=== PATIENT | female | born 1940 | race Caucasian/White ===

== ENCOUNTER 2019-08-22 14:04 | Observation (INO) ==
[2019-08-22] MEDS ORDERED: SALINE LOCK IV FLUID XX ONE (15:37)
[2019-08-22] MEDS ORDERED: ZOFRAN IV PRN (15:37)
[2019-08-22] MEDS ORDERED: TYLENOL PO PRN (15:37)
--- NOTE | 2019-08-22 15:52 | EKG Report ---
Test Performed on : 08/22/2019 3:44:57 PM Test Reason : chest pain Blood Pressure : / mmHG Vent. Rate : 078 BPM Atrial Rate : 078 BPM P-R Int : 142 ms QRS Dur : 128 ms QT Int : 424 ms P-R-T Axes : 081 011 064 degrees QTc Int : 483 ms Normal sinus rhythm. Right bundle branch block Cannot rule out Inferior infarct (cited on or before 21-AUG-2019) Abnormal ECG When compared with ECG of 21-AUG-2019 14:31, (Unconfirmed) Nonspecific T wave abnormality no longer evident in Anterior leads Confirmed by Galen Blum MD ([id number]) on 08/22/2019 11:10:00 PM
--- NOTE | 2019-08-22 16:07 | Diag Imaging Result Doc PS360 ---
CHEST-2 VIEWS - 08/22/2019 INDICATION: Chest Pain COMPARISON: 08/21/2019 FINDINGS: The lungs are normally expanded and clear. Heart size and mediastinal contours are normal. No pneumothorax or pleural effusion. There is some trace linear atelectasis in the lateral left costophrenic angle. No infiltrates or edema. Heart size and pulmonary vascularity is normal. No pneumothorax or pleural effusion. IMPRESSION: No acute disease. Electronically signed by Gerber Kelly 08/22/2019 4:05 PM
--- NOTE | 2019-08-22 20:47 | ECHO REPORT ---
ORDER DATE: 08/22/2019 MEASUREMENTS: Septal thickness 1.0, left ventricular internal diameter in diastole 4.9, posterior wall thickness 1.0, left ventricular internal diameter in systole 2.9, aortic root 3.0, left atrium 3.8. SUMMARY: 1. Technically difficult study due to limited acoustic window quality. 2. The aortic valve is trileaflet and opens normally on 2-dimensional images. The peak gradient across the aortic valve is 11 mmHg. Mitral, tricuspid and pulmonic valves are without evidence of structural abnormality, with very mild mitral regurgitation and trace pulmonic insufficiency. There is trace tricuspid regurgitation. The aortic root is normal in size. 3. Normal left ventricular dimensions demonstrated. Estimated left ventricular ejection fraction appears to be at least 70%. No regional wall motion abnormalities are evident. Doppler suggests grade 1 left ventricular diastolic dysfunction. The left atrium is upper normal in size. The right atrium and right ventricle are normal in size, with grossly preserved right ventricular systolic function. 4. No pericardial effusion. 5. Appearance of the inferior vena cava suggests normal central venous pressure. CONCLUSIONS: 1. Technically difficult study. 2. Very mild mitral regurgitation. 3. Estimated left ventricular ejection fraction at least 70%, without wall motion abnormality evident. 4. Grade 1 left ventricular diastolic dysfunction is suggested. cc: MD Armen Carmona MD
[2019-08-22] MEDS: PRILOSEC PO SCH (20:57)
[2019-08-22] MEDS: NORCO-10 PO PRN (20:58)
[2019-08-22] MEDS ORDERED: NEURONTIN PO SCH (21:00)
[2019-08-22] MEDS ORDERED: DESYREL PO SCH (21:00)
[2019-08-23] MEDS ORDERED: PRILOSEC PO SCH (07:00)
[2019-08-23 07:26] LABS: BASO# 0.03 X1000 (0.0-0.2); BASO% 0.6 % (0.0-0.8); EOS# 0.21 X1000 (0.0-0.7); EOS% 4.1 % (0.0-10.0); HEMATOCRIT 38.8 % (37.0-47.0); HEMOGLOBIN 12.2 g/dL (12.0-16.0); LYMPH# 1.13 X1000 (1.2-3.4); LYMPH% 22.2 % (20.5-51.1); MCH 29.6 PG (27-31); MCHC 31.4 g/dL (33-37); MCV 94.2 FL (81-99); MONO# 0.51 X1000 (0.11-0.59); MPV 9.5 FL (7.4-10.4); NEUT# 3.22 X1000 (1.4-6.5); NEUT% 63.1 % (42.2-75.2); PLT 362 X1000 (130-400); RBC 4.12 XMIL (4.2-5.4); RDW 15.1 % (11.5-14.5)
[2019-08-23 08:13] LABS: CHOLESTEROL 150 mg/dL (0-200); HDL 33 mg/dL (45-65); LDL 67 mg/dL; TRIGLYCERIDES 251 mg/dL (35-135); VLDL 50 mg/dL
[2019-08-23] MEDS ORDERED: LEXISCAN ONE (08:49)
[2019-08-23] MEDS ORDERED: CENTRUM SILVER PO SCH (09:00)
[2019-08-23] MEDS ORDERED: CALTRATE 600 PO SCH (09:00)
[2019-08-23] MEDS ORDERED: MEVACOR PO SCH (09:00)
[2019-08-23] MEDS ORDERED: LASIX PO SCH ×2 (09:00→21:00)
[2019-08-23] MEDS ORDERED: MAG-OX PO SCH (09:00)
[2019-08-23] MEDS ORDERED: ASPIRIN PO SCH (09:00)
[2019-08-23] MEDS ORDERED: MIRAPEX PO SCH (09:00)
[2019-08-23] MEDS: PRILOSEC PO SCH (11:25)
[2019-08-23] MEDS: NORCO-10 PO PRN (11:30)
[2019-08-23 12:02] VITALS: BP 159/74
--- NOTE | 2019-08-23 14:19 | Diag Imaging Result Document ---
PROCEDURE NAME: MYOCARDIAL PERF SCAN, STR/REST - 08/23/2019 INDICATION: Chest pain. PROCEDURES PERFORMED: 1. Lexiscan stress. 2. One-day stress/rest myocardial perfusion imaging. FINDINGS: LEXISCAN STRESS RESULTS: 1. Baseline EKG shows sinus rhythm with a right bundle branch block. 2. Lexiscan stress did not demonstrate any clear evidence of ischemic-related EKG changes or significant arrhythmias during the course of the study. PERFUSION IMAGING RESULTS: 1. No evidence of abnormal extracardiac uptake. 2. TID ratio is 1.11. 3. Perfusion imaging demonstrates essentially normal homogeneous uptake of radiotracer throughout the myocardial segments. I do not see any evidence of clear stress-related defects. 4. Normal ejection fraction 87%. The end-diastolic volume is 70, end-systolic volume 9. Normal wall motion is noted. cc: MD Armen Contreras MD
[2019-08-24] MEDS ORDERED: TENORMIN PO SCH (09:00)
--- NOTE | 2019-08-25 14:35 | DISCHARGE SUMMARY ---
ADMISSION DATE: 08/22/2019 DISCHARGE DATE: 08/23/2019 DISCHARGE DIAGNOSES: 1. Shortness of breath due to acute diastolic congestive heart failure. 2. Unstable angina with a history of known ischemic heart disease. 3. Mixed hyperlipidemia. 4. 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 5. Gastroesophageal reflux disease. 6. Chronic low back pain secondary to lumbar spinal stenosis with neurogenic claudication. DISCHARGE INSTRUCTIONS: 1. Return to clinic in 1 week to see me, Pepe Titus for transition of care visit. 2. Activity as tolerated. 3. 1800 calorie ADA diet. MEDICATIONS: Magnesium oxide 400 mg daily, [place] 10 one q. 6 hours p.r.n. pain, omeprazole 20 mg daily, vitamin D 1000 units twice weekly, Lasix 40 mg in the morning and may take an additional pill in the morning if she gains 2 pounds in 24 hours. Tenormin 12.5 mg daily, allopurinol 300 mg daily, biotin 1000 mcg daily, Ocuvite 1 p.o. daily, Caltrate 600 Plus D b.i.d., Colace 100 mg b.i.d., gabapentin 1200 mg at bedtime, lovastatin 40 mg at bedtime, multivitamin 1 p.o. daily, MiraLAX 17 g in 8 ounce of water daily, trazodone 150 mg at bedtime p.r.n. insomnia. DISCHARGE PHYSICAL EXAMINATION: This is a well-developed, well-nourished 79-year-old lady in no apparent distress. Pulse 85, respirations 20, BP 159/74. CV: Regular rate and rhythm. Lungs: Clear. Abdomen: Soft, nontender, with active bowel sounds. Mrs. Mariposa Mendes has a history of known ischemic heart disease. She was admitted to [facility] with unstable angina and dyspnea. We treated her with aspirin, topical nitrates, and she ruled out for myocardial ischemia by serial enzymes. We performed a Persantine Myoview GXT with rest stress protocol. No perfusion abnormalities were noted. There was no evidence of any reversible ischemia. She has had a previous angioplasty and stenting of multiple arteries. She had been with complaint of shortness of breath. She reported that she wakes up at night with shortness of breath. She had dyspnea with exertion. She had trace ankle edema. She had been taking Lasix 80 mg daily. Her chest x-ray demonstrated clear lung dubois. A 2D echocardiogram with color Doppler and spectral flow Doppler studies were obtained. She had mild mitral regurgitation. Normal left ventricular function with an EF of 70% without wall motion abnormalities and grade 1 ventricular diastolic dysfunction. We placed her on a salt and fluid restricted diet. Because of the diminished cardiac compliance, we began low-dose atenolol 12.5 mg daily. Because we added atenolol, I reduced the dosage of Lasix from 80 mg daily to 40 mg daily. I have asked her to weigh daily. She will take Lasix 40 mg in the morning and may take a second Lasix if she gains 2 pounds in 24 hours. We will titrate upward on the atenolol as tolerated to improve cardiac compliance. Having reached maximum hospital benefit, the patient was discharged in stable condition. cc: Armen Cantu MD
[2019-08-25] MEDS ORDERED: VITAMIN D PO SCH (16:06)
== END 2019-08-23 14:31 | disposition home or self-care (01) ==
LOC: INTOOBSV 14:04 → DIRADM 14:04 → 2N 14:39
PROVIDERS: ADMIT Internal Medicine; ATTEND Internal Medicine

== ENCOUNTER 2019-10-11 23:10 | Inpatient (IN) ==
[2019-10-11] MEDS ORDERED: NS 1,000 ML IV ONE (23:30)
[2019-10-12 00:12] LABS: INR 0.98
[2019-10-12 00:13] LABS: PTT 27.1 Seconds (22.3-41.8)
[2019-10-12 00:15] LABS: ALB/GLOB RATIO 2.4; ALBUMIN 4.3 g/dL (3.5-5.0); CALCIUM 9.6 mg/dL (8.8-10.2); CREATININE 1.3 mg/dL (0.5-0.9); POTASSIUM 4.1 mmol/L (3.5-5.1); TOTAL BILIRUBIN 0.3 mg/dL (0.20-1.00); TOTAL PROTEIN 6.1 g/dL (6.3-8.3)
[2019-10-12 00:22] LABS: BASO# 0.04 X1000 (0.0-0.2); BASO% 0.4 % (0.0-0.8); EOS# 0.04 X1000 (0.0-0.7); EOS% 0.4 % (0.0-10.0); HEMATOCRIT 38.6 % (37.0-47.0); HEMOGLOBIN 11.8 g/dL (12.0-16.0); IMM GRAN# 0.04 X1000 (0.0-0.04); IMM GRAN% 0.4 % (0.0-0.5); LYMPH# 0.62 X1000 (1.2-3.4); LYMPH% 5.5 % (20.5-51.1); MCH 29.8 PG (27-31); MCHC 30.6 g/dL (33-37); MCV 97.5 FL (81-99); MONO# 0.37 X1000 (0.11-0.59); MONO% 3.3 % (1.7-9.3); MPV 10.6 FL (7.4-10.4); NEUT# 10.25 X1000 (1.4-6.5); PLT 315 X1000 (130-400); RBC 3.96 XMIL (4.2-5.4); RDW 15.7 % (11.5-14.5); WBC 11.36 X1000 (4.8-10.8)
[2019-10-12 01:09] LABS: URINE SOURCE CATH
[2019-10-12 01:15] LABS: BILIRUBIN URINE NEGATIVE (NEGATIVE); BLOOD URINE NEGATIVE (NEGATIVE); COLOR YELLOW; GLUCOSE URINE NEGATIVE (NEGATIVE); KETONE URINE TRACE mg/dL (NEGATIVE); LEUKOCYTES URINE TRACE (NEGATIVE); NITRITE URINE NEGATIVE (NEGATIVE); PH URINE 5.5; PROTEIN URINE 50 mg/dL (NEGATIVE); SP GRAVITY URINE 1.026; TURBIDITY URINE CLEAR (CLEAR); UROBILINOGEN URINE NORMAL (NORMAL)
[2019-10-12 01:29] LABS: UR EPITHELIAL CELLS <10 /HPF (<10); URINE BACTERIA NEGATIVE /HPF; URINE RBC <10 /HPF (<10); URINE WBC <10 /HPF (<10)
[2019-10-12 01:30] LABS: URINE CASTS GRANULAR PRESENT; URINE CRYSTALS NONE SEEN; URINE SMALL ROUND CELLS NONE SEEN; URINE YEAST NONE SEEN
--- NOTE | 2019-10-12 01:37 | PROVIDER DOCUMENTATION ---
This chart was entered by Nely Jackson Scribe, acting as scribe for Marcus Cabrales MD. HPI-General Adult - General Chief Complaint: Syncope Stated Complaint: poss. cva Time Seen by Provider: 10/11/19 23:23 Source: patient, EMS Allergies/Adverse Reactions: Patient Allergies Allergy/AdvReac Type Severity Reaction Status Date / Time baclofen Allergy HEADACHE Verified 10/12/19 01:10 methocarbamol Allergy NAUSEA/VOMI Verified 10/12/19 01:10 TING Home Medications: Home Medication List Medication Instructions Recorded Confirmed Last Taken Type Allopurinol [Zyloprim] 300 mg PO DAILY 08/21/19 08/22/19 Unknown History Aspirin 81 mg PO DAILY 08/21/19 08/22/19 Unknown History Biotin 1,000 mcg PO DAILY 08/21/19 08/22/19 Unknown History C,E,Zinc,Copper 11/Rlarl6v/Lut 1 cap PO DAILY 08/21/19 08/22/19 Unknown History [Ocuvite Adult 50 Plus Softgel] Calcium Carbonate [Calcium] 600 mg PO DAILY 08/21/19 08/21/19 Unknown History Cyanocobalamin S.l. [Vitamin B-12] 25,000 mcg PO DAILY 08/21/19 08/22/19 Unknown History Docusate Sodium [Colace] 1 - 4 tab PO DAILY PRN 08/21/19 08/22/19 Unknown History Gabapentin 1,200 mg PO QHS 08/21/19 08/22/19 Unknown History Lovastatin 40 mg PO DAILY 08/21/19 08/22/19 Unknown History Metformin [Glucophage] 500 mg PO BID 08/21/19 08/22/19 Unknown History Multivitamins/Minerals [Centrum 1 tab PO DAILY 08/21/19 08/22/19 Unknown History Silver] Polyethylene Glycol 3350 [Miralax] 1 dose PO DAILY 08/21/19 08/22/19 Unknown History Potassium Chloride 10 meq PO DAILY 08/21/19 08/22/19 Unknown History Pramipexole [Mirapex] 0.5 mg PO DAILY 08/21/19 08/22/19 Unknown History Trazodone HCl 150 mg PO QHS 08/21/19 08/22/19 Unknown History Vitamin B Complex [B Complex] 1 tab PO DAILY 08/21/19 08/22/19 Unknown History Buspirone HCl 1 tab PO TID 08/22/19 08/22/19 Unknown History Hydrocodone/APAP 10 mg/325 mg 1 tab PO Q6H PRN 08/22/19 08/22/19 Unknown History [[employer]-10] Atenolol [Tenormin] 12.5 mg PO DAILY #30 tab 08/23/19 Unknown Rx Cholecalciferol (Vit D3) [Vitamin 1,000 unit PO MoFr cap 08/23/19 Unknown Rx D] Furosemide [Lasix] 40 mg PO BID #60 tab 08/23/19 Unknown Rx Hydrocodone/APAP 10 mg/325 mg 1 ea PO Q6H PRN PRN tab 08/23/19 Unknown Rx [[employer]-10] Magnesium Oxide [Mag-Ox] 400 mg PO DAILY tab 08/23/19 Unknown Rx Omeprazole [Prilosec] 20 mg PO BID cap 08/23/19 Unknown Rx - History of Present Illness -Gen Adult Nature of Presenting Problems: pt is a 79 yr old female presenting via EMS from home. per medic pt had fall tonight, refused services and approx 10min later family called back for "stroke symptoms" family reported pts left hand weak and drawn. EMS reports pt denied any weakness, dizziness or confusion, pt complained of "not feeling well" family reported pt seen by PCP today for same. during transportation analyst reports pt talking, began breathing hard/fast and went unresponsive, Vfib seen by medic on monitor , medic began compressions and reports after approx 20-25 compressions pt was NSR and became responsive. pt vague, states she just does not feel well. Onset/Duration: reports: unsure Timing: reports: still present Context/Activities at Onset: reports: rest Modifying Factors: improves with: nothing Recently seen or treated by another doctor?: Yes (seen by PCP today) Review of Systems - Adult - REVIEW OF SYSTEMS - ADULT ROS:: limited per condition Constitutional: reports: no symptoms reported Past History - Adult - PAST MEDICAL HISTORY-ADULT Review of Records: reports: Nursing Assessment Review, Medications Reviewed, Social history reviewed & non-contributory. Major Childhood Illnesses: reports: denies history Cardiovascular: reports: cardiac disease, CAD, CHF, hyperlipidemia, [place] Respiratory: reports: denies history Gastrointestinal: reports: denies history Obstetrical/Gynecological: reports: denies history Genitourinary: reports: denies history Musculoskeletal: reports: chronic pain (back, has had back surgeries) Neurological: reports: denies history Psychiatric: reports: denies history Endocrine/Immune: reports: Diabetes Other Conditions: reports: denies history - PRIOR SURGERIES/PROCEDURES Surgical/Procedure History: reports: other (stent placement, back surgeries) - IMMUNIZATION STATUS Childhood Immunizations: See Nurse Assessment Flu Vaccine: See Nurse Assessment - FAMILY HISTORY Family History: reviewed, not pertinent - SOCIAL HISTORY Smoking: cigarettes Provider spent 3-5 mins advising pt. on dangers of tobacco.: Discussed manners to quit use, and f/u contacts for add'l counseling. Substance Use: denies Living Situation: family Physical Exam-General - CONSTITUTIONAL General Appearance: alert, obese - EYES Eyes: PERRL/EOMI - HEAD, EARS, NOSE, MOUTH & THROAT HENMT: normocephalic/atraumatic, moist mucous membranes - NECK Neck: non-tender, full range of motion, supple, normal inspection - RESPIRATORY Respiratory: lungs clear, normal breath sounds, increased rate - CARDIOVASCULAR Cardiovascular: normal peripheral pulses, regular rate, rhythm - GASTROINTESTINAL (ABDOMEN) Abdominal Exam: normal bowel sounds, non tender, soft - LYMPHATIC Lymphatic: no adenopathy - MUSCULOSKELETAL Extremity: normal range of motion, non-tender, normal inspection - SKIN Integumentary: normal color, normal turgor, warm/dry - NEUROLOGIC Neurologic: grossly normal, no motor/sensory deficits Progress - PLAN OF CARE/RESULTS Progress/Plan/Lab Results: Orders Category Date Time Status Cardiac Monitoring DIRECTED Care 10/11/19 23:28 Active IV Insertion ORDERED Care 10/11/19 23:28 Active Notify MD of + Sepsis Screen NOW Care 10/11/19 23:28 Active Notify Physician As Ordered Care 10/11/19 23:28 Active CHEST-1 VIEW [RAD] Stat Exams 10/11/19 23:[address] HEAD W/O CONTRAST [CT] Stat Exams 10/11/19 23:11 Taken BLOOD CULTURE [BLDCUL] Stat Lab 10/11/19 23:28 Uncollected CBC WITH DIFF [HEME] Stat Lab 10/11/19 23:28 Uncollected CK PROFILE [SP CHEM] Stat Lab 10/11/19 23:28 Uncollected COMPREHENSIVE METABOLIC PANEL [CHEM] Stat Lab 10/11/19 23:28 Uncollected LACTATE, PLASMA [CHEM] Q3H Lab 10/11/19 23:30 Uncollected LACTATE, PLASMA [CHEM] Q3H Lab 10/12/19 02:30 Uncollected LACTATE, PLASMA [CHEM] Q3H Lab 10/12/19 05:30 Uncollected PROTIME WITH INR [COAG] Stat Lab 10/11/19 23:28 Uncollected PTT [COAG] Stat Lab 10/11/19 23:28 Uncollected TROPONIN T Stat Lab 10/11/19 23:28 Uncollected URINALYSIS W/POSS RFLX CULT [URINALYSIS] Stat Lab 10/11/19 23:28 Uncollected 0.9% Sodium Chloride Inj [Ns] 1,000 ml Med 10/11/19 23:30 Active IV 999 mls/hr Oxygen Device Stat Oth 10/11/19 23:28 Active Result Diagrams: 10/11/19 23:36 10/11/19 23:36 - EKG 1 Time of EKG reading by physician:: 23:28 EKG Read and Signed by:: Marcus Cabrales EKG Interpretation (*Must complete 3 of following elements*): Abnormal (LAE) Rate: 62 Rhythm: nsr with sinus arrhythmia QRS: NSIVCD - CT/MRI 1 CT Study: Head Impression: Normal, Discussed w/Radiology (called stroke protocol-negative exam) , See EMR Report Departure - Departure Date of Disposition Decision: 10/12/19 Time of Disposition Decision: 01:36 DIAGNOSIS: Syncope Qualifiers: Syncope type: unspecified Qualified Code(s): R55 - Syncope and collapse Disposition: ADMITTED INPATIENT 09 Certified Medical Emergency: Emergent Condition: Stable Referrals and Follow-Ups: Yana Cantu MD [Primary Care Provider] - - Critical Care Note This patient required my direct & personal management of CC.: No Attestation - Physician/ CLYDE Attestation Patient care was provided by Advanced Practice Provider:: No The physician spent face to face time with patient:: Yes Advanced Practice Provider documentation review:: Supervising physician onsite and consulted in the evaluation and care of this patient. The physician did have a face to face encounter with the patient. This chart was documented by the indicated scribe, (Nely Jackson Scribe) and accurately reflects the services I performed and decisions made by me, Marcus Cabrales MD, as attested by the provider's signature.
[2019-10-12 04:20] LABS: ALLEN TEST YES; BE 1.7 mmoll (-3.0-3.0); BLOOD TYPE ARTERIAL; HCO3-(ACT) 26.3 mmoll (20.0-26.0); METHB 0.3 % (0.0-1.5); MODALITY CANNULA; O2(CT) 15.1 mL/dL (15.0-23.0); PCO2(98.6) 42 mmHg (35-45); PO2(98.6) 123 mmHg (60-100); SAMPLE BLOOD; SAO2 98.3 % (95.0-100.0); THB 10.9 g/dL (11.5-17.4); pH(98.6) 7.41 (7.35-7.45)
[2019-10-12 05:19] LABS: CALCIUM 9.1 mg/dL (8.8-10.2); POTASSIUM 4.4 mmol/L (3.5-5.1)
--- NOTE | 2019-10-12 05:36 | Diag Imaging Result Doc PS360 ---
CT HEAD W/O CONTRAST - 10/11/2019 INDICATION: poss cva COMPARISON: None FINDINGS: There is mild cerebral atrophy. There is mild periventricular white matter chronic microvascular disease. No intracranial mass or hemorrhage. The skull is intact. The sinuses are clear. IMPRESSION: No acute process. This exam was performed using automated exposure control, adjustment of mA or kV according to patient size, and/or use of iterative reconstruction technique Electronically signed by Gerber Kelly 10/12/2019 5:34 AM
[2019-10-12] MEDS ORDERED: ZOFRAN IV PRN (05:44)
[2019-10-12] MEDS ORDERED: DUONEB (A & A) INH PRN (05:44)
[2019-10-12] MEDS ORDERED: TYLENOL PO PRN (05:44)
[2019-10-12] MEDS ORDERED: PROTONIX IV SCH (05:45)
[2019-10-12] MEDS ORDERED: SODIUM CHLORIDE 0.9% INJ SCH (05:45)
[2019-10-12] MEDS: HUMULIN R SUBQ SCH ×4 (07:00→20:30)
--- NOTE | 2019-10-12 07:19 | Diag Imaging Result Doc PS360 ---
EXAM: CHEST-1 VIEW 10/11/2019 HISTORY: weakness TECHNIQUE: AP portable supine at 2341 COMMENT: There is platelike opacity in the lingula and left base. The former was not present on 08/22/2019. The inspiration is slightly less optimal than on the previous study. IMPRESSION: Lingular atelectasis. Electronically signed by Nader Martinez 10/12/2019 7:17 AM
--- NOTE | 2019-10-12 07:52 | EKG Report ---
Test Performed on : 10/11/2019 11:28:54 PM Test Reason : ED. NO EKG ORDER FOR MUSE Blood Pressure : / mmHG Vent. Rate : 062 BPM Atrial Rate : 062 BPM P-R Int : 146 ms QRS Dur : 124 ms QT Int : 452 ms P-R-T Axes : 069 017 055 degrees QTc Int : 458 ms Normal sinus rhythm. with sinus arrhythmia. Possible Left atrial enlargement Nonspecific intraventricular conduction delay Borderline ECG When compared with ECG of 22-AUG-2019 15:44, Nonspecific intraventricular conduction delay has replaced Right bundle branch block Unconfirmed Result
[2019-10-12] MEDS ORDERED: VANCOMYCIN 1 GM/NS 1 GM/250 ML IVPB IV ONE (08:35)
[2019-10-12] MEDS ORDERED: LEVAQUIN 500 MG/D5W 500 MG/100 ML IVPB IV SCH (08:45)
[2019-10-12] MEDS ORDERED: ZYLOPRIM PO SCH (09:00)
[2019-10-12] MEDS ORDERED: LASIX PO SCH (09:00)
[2019-10-12] MEDS: LR 1,000 ML IV SCH (10:30)
[2019-10-12] MEDS: TENORMIN PO SCH (11:14)
[2019-10-12] MEDS: ASPIRIN PO SCH (11:16)
[2019-10-12] MEDS: ZYLOPRIM PO SCH (11:16)
[2019-10-12] MEDS: CALTRATE 600 PO SCH (11:17)
[2019-10-12] MEDS: BRILINTA PO SCH ×2 (11:18→21:13)
[2019-10-12] MEDS: MEVACOR PO SCH (11:18)
[2019-10-12] MEDS: MAG-OX PO SCH (11:18)
[2019-10-12] MEDS: PRILOSEC PO SCH ×2 (11:19→20:30)
--- NOTE | 2019-10-12 11:38 | EKG Report ---
Test Performed on : 10/12/2019 11:26:06 AM Test Reason : dypsnea Blood Pressure : / mmHG Vent. Rate : 072 BPM Atrial Rate : 072 BPM P-R Int : 170 ms QRS Dur : 110 ms QT Int : 424 ms P-R-T Axes : 076 012 049 degrees QTc Int : 464 ms Normal sinus rhythm. Possible Left atrial enlargement Low voltage QRS Incomplete right bundle branch block Nonspecific ST abnormality Abnormal ECG When compared with ECG of 11-OCT-2019 23:28, (Unconfirmed) No significant change was found Confirmed by Mike PERES, Lionel ([id number]) on 10/13/2019 11:38:06 AM
--- NOTE | 2019-10-12 11:39 | PROGRESS NOTE ---
DATE: 10/12/2019 SUBJECTIVE: Ms. Mendes was admitted to [facility] with a syncopal episode. She reported that she felt dizzy, lightheaded and suddenly passed out. One of these episodes occurred in the ambulance, and she was noted to be in ventricular fibrillation. She spontaneously converted back to normal sinus rhythm. She had another syncopal episode associated with ventricular fibrillation. She denied any chest pain or other anginal equivalents. She had a [employer] GXT on 08/23/2019. It demonstrated essentially normal homogeneous uptake of radiotracer. There was no evidence of stress-related defects. Her ejection fraction was 87. She had an echocardiogram at that time which demonstrated normal LV function, mild mitral regurgitation and an EF of 70% without wall motion abnormalities. She had grade [address] scan of the brain was unremarkable. She has remained in normal sinus rhythm. She denies any chest pain, palpitations, or anginal equivalents. Her initial cardiac enzymes are negative. She was seen in a walk-in clinic yesterday for evaluation of low-grade fever, chills, cough productive of yellowish sputum, and pleuritic chest pain worse with deep inspiration. She was told that she had a pneumonia. Her chest x-ray obtained at [facility] demonstrated lingular atelectasis in the lingula and left base. This was not seen previously on a chest x-ray of 08/22/2019. She does have a leukocytosis of 11,000 with a left shift. Her respiratory rate has ranged from 24 to 32 during the night. She reports that she is mildly short of breath. OBJECTIVE: Vital Signs: O2 saturations are 94% to 95% on 5 L of O2. She is afebrile. Pulse 66, respirations 28, BP 106/50. CV: Regular rate and rhythm. Lungs: Diminished breath sounds in the left base. Abdomen: Soft, nontender, with active bowel sounds. Extremities: Without edema. LABS: Various laboratory studies were obtained. A CBC demonstrated a white count of 11.36, hemoglobin 11.8 ,hematocrit 38.6 and a platelet count of 315,000. She does have a left shift. Arterial blood gases demonstrated a PO2 of 123, pCO2 42, pH 7.41 and an O2 saturation 98%. Electrolytes demonstrated the following: Sodium 138, potassium 4.1, BUN 31, creatinine 1.3 glucose 173. Initial CPK and troponins are negative. ASSESSMENT AND PLAN: 1. Syncopal episode. I suspect that her syncopal episode was due to the underlying arrhythmia. She had 2 episodes of ventricular fibrillation. She does have underlying heart disease. Her previous stress test in August of this year demonstrated no reversible ischemia. Her echocardiogram showed mild mitral regurgitation. We will continue her on telemetry and will rule her out for myocardial ischemia. Certainly she may need an antiarrhythmic. We will consult Cardiology. 2. Type 2 noninsulin-dependent diabetes mellitus complicated by polyneuropathy. Given her creatinine of 1.3, I will hold the metformin. We will place her on pattern sugars and a Humulin R sliding scale. 3. Community-acquired pneumonia. She does have a left shift. She was tachypneic. Her initial plasma lactate is 2.9; her repeat lactate is 2.5. I believe that she meets the initial criteria for the sepsis protocol. I will begin Levaquin 500 mg intravenous daily pending blood and sputum cultures. We will also give her a one-time dose of vancomycin. cc: Armen Cantu MD
--- NOTE | 2019-10-12 11:57 | HISTORY AND PHYSICAL ---
PRIMARY CARE PROVIDER: Dr. Doug Cantu. TRAFFIC RATE COMPUTER: A physician at [facility] in [place]. DATE AND TIME: 10/12/2019 at 0445. CHIEF COMPLAINT: Syncopal episodes. HISTORY OF PRESENT ILLNESS: Ms. Mendes is a 79-year-old female with a past medical history most notable for coronary artery disease with cardiac stent placement x4, hypertension, hyperlipidemia, recent history of acute diastolic heart failure and diabetes mellitus. The patient's states that yesterday, being October 11, that his did have a total of 3 falls at home, the first one he states that he was not present or was not home, that she was by herself at the time. The second one he states that she was in the kitchen sitting at the chair and fell out onto the floor. The last one she was sitting on the toilet and fell out onto the floor. The patient denies any previous episodes like this in the past. Right before the episode happens, the patient states that she begins to get dizzy and feels bad and she knows what is coming, she can feel it coming on. She also has been reporting some exertional dyspnea over the past few days. She states that at rest she does not have any shortness of breath though when she gets up and exerts herself, she is having shortness of breath. She also reports that recently she has had a cold has and has had a cough. She did go to an Urgent Care a few days ago and from what I understand, did receive a Rocephin injection and possibly a steroid injection. Though outside of her syncopal episodes and the reported exertional dyspnea, she denies any other dizziness, headache, or visual disturbances. She denies any cough. She denies any chest pain. She denies any abdominal pain, nausea, vomiting, or diarrhea. She denies any hematochezia or melena. She denies any dysuria or urinary frequency. She also denies any new pain, numbness, tingling or swelling in her extremities. The last syncopal episode she had for which she was sitting on the toilet and fell out onto the floor, this is when they, from what I understand, called the ambulance. At some point during this time, this patient's left hand was weak and drawn. Though upon questioning the patient in the ER, she did not report this. Though she is overall weak, her hand grasp and muscle strength bilaterally are good, and also according to EMS, upon transport to the hospital, she reportedly, per the medic, had ventricular fibrillation on the monitor. He did begin compressions and reports that after approximately 20 to 25 compressions, the patient did become responsive and was in a sinus rhythm. Upon arrival to the ER, the patient's initial vital signs were temperature 98 degrees, heart rate 75, respirations 28, blood pressure was 57/38 with a MAP of 40. Oxygen saturation was 96% nasal cannula at 5 L. Shortly after the patient arrived to the ER, she did have an episode where she became unresponsive. It looked as though she did have like a sinus pause or arrest on the bedside monitor. I was actually in the ER seeing another patient when this occurred. I did see this happen on the monitor. I went to the patient's bedside. The patient was completely unresponsive. There was no palpable pulse present. We did start compressions, did approximately 25 to 30 compressions and then the patient did begin to move and compressions were stopped. She did wake up and begin to respond and follow commands again. There is a concern that this might have been what was happening at home prior to her arrival, though we do need to consider other causes as well. EKG performed in the ER did show normal sinus rhythm with a sinus arrhythmia and left atrial enlargement at a rate of 62 with a QTc of 458. When compared to EKG from 08/22/2019, there do not appear to be any significant changes. I also did perform CT of the head without contrast which showed no acute process. Chest x-ray performed did not appear to have any acute abnormalities. There might be some mild pulmonary vascular congestion. The patient did have some crackles noted in bilateral bases upon examination. She does have some slight JVD noted with positive hepatojugular reflux. She does have some trace to 1+ pitting edema noted in bilateral lower extremities just from the knee down. She did receive a 1 L normal saline bolus in the ER though this was given due to the patient's blood pressure was very low in the 50s and 60s systolically. She has not had any further fluids. She will be placed inpatient for admission. Her cardiac enzymes were negative at this time. We have ordered some other additional labs which include repeat cardiac enzymes, repeat BMP, a D-dimer, and a proBNP. The patient was placed in ICU for close monitoring. REVIEW OF SYSTEMS: A 14 point review of systems was conducted with the patient and all were negative except for pertinent positives mentioned in the above HPI. PAST MEDICAL HISTORY: 1. Hypertension. 2. Hyperlipidemia. 3. Coronary artery disease status post stent placement x4. 4. Diabetes mellitus type 2. 5. History of diastolic heart failure. 6. Neuropathy. 7. Gastroesophageal reflux disease. 8. Chronic low back pain secondary to lumbar spinal stenosis and neurogenic claudication. PAST SURGICAL HISTORY: 1. History of, from what I understand, a total of 3 lumbar surgeries. 2. Coronary artery stent placement x4. 3. Hysterectomy. SOCIAL HISTORY: The patient is a current smoker at this time, she does smoke approximately a fourth of a pack a day. From what I understand, the patient did smoke for a long time at 1 pack per day for approximately 20 years. She did quit for several months though unfortunately did start back smoking again. There is no known history of alcohol or illicit drug use. She is . Her and her have been for 59 years. Her and her son were present at bedside during my examination. FAMILY HISTORY: 1. Positive for her father passing away at age 64 secondary to acute myocardial infarction. He also had a history of coronary artery disease and hypertension. 2. Her mother had a history of colon cancer with liver metastasis. ALLERGIES: Patient has allergies to baclofen and methocarbamol. HOME MEDICATIONS: We are waiting for the patient's home medication list to be updated and verified and once done so, we will continue appropriate medications. DIAGNOSTIC AND LABORATORY DATA: White blood cell count 67399, hemoglobin 11.8, hematocrit 38.6, platelet count is 315,000. PT 13, INR 0.98, PTT is 27.1. Sodium 138, potassium 4.1, chloride 98, serum bicarb 27, BUN 31, creatinine 1.3 with a GFR 40, glucose 173, calcium 9.6, magnesium 2.6. Liver function tests within normal limits except for ALT was slightly elevated at 38 and alkaline phosphatase was elevated at 106. CK 69, troponin less than 0.01. Plasma lactate was 2.9. Urinalysis was obtained via catheter, was positive for protein, ketones, and trace leukocytes. It was negative for blood, nitrites, white blood cells, or bacteria. Arterial blood gases were obtained on nasal cannula at 36% FiO2, pH is 7.41, pCO2 is 42, PO2 is 123, HC03 is 26.3. EKG showed normal sinus rhythm with a sinus arrhythmia and possible left atrial enlargement at a rate of 62 with a QTc of 458. Chest x-ray may show some mild pulmonary vascular congestion though we are awaiting official radiology over-read. CT of the head without contrast showed no acute abnormalities. There was some mild cerebral atrophy and some mild periventricular white matter and chronic microvascular disease. This is per Radiology. PHYSICAL EXAMINATION: VITAL SIGNS: Heart rate 69, respirations 16, blood pressure is 111/52, oxygen saturation is 97% per nasal cannula at 5 L. GENERAL: Ms. Mendes is a pleasant 79-year-old female. She was resting on the ER stretcher. She was in no acute distress. She was resting with her eyes closed and does seem drowsy though is easily arousable by verbal stimulation and calling her name. She will answer questions, though does drift right back off to sleep. HEENT: Pupils are equal, round, reactive to light, were 3 mm bilaterally and brisk. Oral mucosa is slightly dry. Oropharynx is clear. The patient does have 2 approximately quarter-sized bruises noted to bilateral jaw line from previous falls. NECK: Supple. Trachea is midline. CARDIOVASCULAR: Patient has S1, S2 present. No murmurs, gallops, rubs appreciated with regular rate and rhythm. PULMONARY: Patient has symmetrical chest expansion bilaterally. Lung sounds in upper lung dubois were clear to auscultation though she did have crackles noted in bilateral bases. This was mild. ABDOMEN: Soft. Does not appear to be distended. The patient does have a protuberant abdomen noted. She was nontender upon palpation. Bowel sounds are present in all 4 quadrants, were normoactive. ASSESSMENT AND PLAN: 1. Syncope. This is of uncertain etiology at this time. We are considering possible cardiac involvement. We are also considering neurological involvement as well. We have ordered a D- dimer as well. The patient has had syncope, dyspnea, hypoxia without oxygen. On room air, her oxygen saturation is in the high 80s. She also does smoke as well. We will rule out possible pulmonary embolism also. At this time, the patient is not reporting any chest pain. Cardiac enzymes are negative, though we will continue with a series of cardiac enzymes and repeat an EKG this morning. We have ordered an echocardiogram, carotid artery ultrasound. We have placed a consult with Dr. Dwyer with Cardiology. We will await their evaluation and further recommendations for management. The patient will be placed in the ICU for close monitoring. We will do frequent vital signs, q.4 hour neuro checks. She will be on continuous cardiac telemetry and pulse oximetry. We will continue to follow this closely. Given the patient's reported episodes at home as well as the episode she had in the ER, I do suspect this is secondary to cardiac involvement. 2. Coronary artery disease status post stent placement x4. We will continue with treatment as mentioned above. We are waiting for the patient's home medication list to be verified. 3. History of diastolic heart failure. The patient did receive a 1 L normal saline bolus upon arrival to the ER due to she was very hypotensive with blood pressures in the 50s and 60s systolic. This has improved at this time. She does have some mild crackles in bilateral bases. She did appear to have some slight JVD noted upon examination with a positive hepatojugular reflux. She also does have some trace edema in bilateral lower extremities from about mid calf down. Though her proBNP is only mildly elevated, I do not think the patient needs any Lasix at this time. She is not in any distress. She is not dyspneic. She is resting comfortably in the bed. We will continue to monitor this closely. We will await Cardiology's evaluation. 4. Hypotension. This has resolved. The patient did receive a 1 L normal saline bolus in the ER and since that time, her blood pressure has maintained in the 110s to 120s systolically. We will continue to monitor. 5. Acute kidney injury. This is likely secondary to her being hypotensive. With a repeat BMP this morning, her creatinine has improved, it went from 1.3 to 1 with GFR from 40 to 54. We will continue to monitor closely. We will avoid nephrotoxic medications and renally dose medicines as necessary. 6. Diabetes mellitus. The patient is n.p.o. at this time. We will do pattern fingerstick blood sugars, though we will not treat her sugar at this time unless it gets above 200. We have her on a patient-specific sliding scale insulin. The patient will be placed in the ICU for close monitoring. We will do strict intake and output, incentive spirometry. She is n.p.o. at this time. We are awaiting a D- dimer result at this time. Further orders and recommendations pending hospital course, diagnostic studies, and physician evaluation. Dictated by ANTONY Stack for Chineud Murillo MD I have performed a face to face diagnostic evaluation. Labs/ Xray- reviewed, Exam- Chest- clear, CV- regular. A/P- Syncope- Admit, check orthostatic BP and pulse, gentle hydration, Cardiology consult. Dr. Murillo cc: MD Armen Yun MD [facility]
--- NOTE | 2019-10-12 12:15 | Diag Imaging Result Doc PS360 ---
CT THORAX W/O CONTRAST - 10/12/2019 INDICATION: Dyspnea, possible pneumonia COMPARISON: Chest x-ray 10/11/2019 FINDINGS: There is advanced diffuse triple-vessel calcified coronary artery disease. Heart size is normal with no pericardial effusion. No adenopathy. Upper abdominal images are grossly normal. There is severe patient motion artifact. There is COPD. There is some hazy interstitial pulmonary edema. There is some dependent atelectasis in the lung bases. No significant pleural effusion. There are moderate degenerative changes of the spine. No acute or suspicious bony lesion. IMPRESSION: 1. Interstitial pulmonary edema. 2. Advanced COPD. This exam was performed using automated exposure control, adjustment of mA or kV according to patient size, and/or use of iterative reconstruction technique Electronically signed by Gerber Kelly 10/12/2019 12:13 PM
[2019-10-12] MEDS: BIOTIN PO SCH (13:19)
[2019-10-12] MEDS: BUSPAR PO SCH ×2 (15:15→20:30)
[2019-10-12] MEDS: LASIX IV SCH (16:54)
[2019-10-12] MEDS: ROCEPHIN 1 GM in NS 50 ML IV SCH (16:54)
[2019-10-12] MEDS: DUONEB (A & A) INH SCH ×2 (20:11→23:34)
[2019-10-12] MEDS: NEURONTIN PO SCH (20:30)
[2019-10-12] MEDS: NORCO-10 PO PRN (21:14)
[2019-10-12] MEDS ORDERED: LR 400 ML IV ONE (22:33)
[2019-10-12] MEDS ORDERED: LEVOPHED 8 MG in D5 1/2 NS 250 ML IV SCH (22:45)
--- NOTE | 2019-10-12 22:46 | CARDIOLOGY CONSULTATION ---
DATE: 10/12/2019 REASON FOR CONSULTATION: Syncope. REQUESTING PHYSICIAN: Armen Cantu MD HISTORY: Ms. Mendes is a 79-year-old female who normally follows with Dr. Javid Cruz at [facility] in [place]. She presented to the emergency room on October 11 at about 11 p.m. after suffering recurrent fainting spells. She said that about a week ago, she passed out at home and injured her shoulder. She ended up going to [facility]. They sent her home and then a couple of nights ago she suffered a fainting spell at home and then there was another 1 where she fell and injured the shoulder area one more time and the right side of neck and chest. At this time, they did a head CT that shows no acute process. They did a chest x-ray that shows lingular atelectasis. They did blood work that showed a white count of 11,360, hemoglobin 11.8, her PT is 13 seconds, PTT 27.1 seconds. She has been admitted for BUN 31, creatinine 1.3. We have checked troponin levels a total of 3 times. They are negative. Her C- reactive protein has been checked. This is slightly elevated at 12.09 mg/L. Her proBNP level is 974 pg/mL which is about twice baseline. The patient is very short of breath. She, at times, appears to be getting a sort of a panic attack and simultaneously her heart rate drops and I could not tell for sure if at that particular moment she had like a brief episode of second-degree AV block. That could not be capture in the monitor. I have warned the nurses to monitor her closely to make sure that this arrhythmia is not consistent. She is just having chest wall discomfort from the fall. PAST HISTORY: Positive for coronary heart disease. She had previous stents to right coronary artery and recently to the circumflex system in March 2019 in [place]. At that time, they also, I believe, attempted intervention to a high lateral branch of the circumflex and there was a mid left circumflex stent and also a PCI to the ramus intermedius by Dr. Castrejon on 03/27/2019. The presentation at the time was as a acute coronary syndrome. Of note, the right coronary artery appeared to be perfectly patent at that time as well as her left main and LAD. She does have a history of congestive heart failure, diastolic, hyperlipidemia, diabetes mellitus type 2. She has chronic back pain. She has COPD relatively advanced. SURGICAL HISTORY: She had back surgery in the past. SOCIAL HISTORY: . She is retired, lives at home with . Unfortunately, she has been a smoker for many years. She quit smoking about 3 months ago. FAMILY HISTORY: Noncontributory. ALLERGIES TO: Baclofen, methocarbamol. HOME MEDICATIONS: At the time of this admission included allopurinol 300 mg daily, aspirin 81 daily, atenolol 12.5 daily. Biotin a 1000 mcg daily, buspirone 15 mg twice a day, cholecalciferol 1000 units 2 days a week, Nexium 20 mg daily, Lasix 80 mg daily, lovastatin 40 mg daily, magnesium 400 mg daily, metformin 500 mg twice a day, potassium chloride 10 mEq daily, Brilinta 90 mg twice a day, trazodone 150 mg at bedtime, and multivitamins. REVIEW OF SYSTEMS: She is chronically short of breath and her functional capacity is markedly diminished. No significant angina pectoris. These syncopal episodes that she is eluding to are relatively of new onset. PHYSICAL EXAMINATION: Vital signs: Blood pressure is 151/92, pulse 81, temperature 91 degrees, respirations 18. General: Awake, alert, oriented, in no distress. Quite anxious. HEENT: No jugular venous distention. Chest: Diminished breath sounds diffusely. End expiratory phase prolonged. Heart: Sounds distant, regular without gallop or murmur. Abdomen: Obese, nontender. Extremities: Showed decreased pulses. No peripheral edema. No odor. Neurological: She is awake, alert, oriented x3. Moves 4 extremities. Follows commands. EKG is from 11:26 this morning. It shows sinus rhythm with an incomplete right bundle branch block and no ischemic changes. IMPRESSION: 1. A patient who presented with recurrent syncope. I suspect that there may be a cardiac arrhythmia here. Possibly transient atrioventricular block. However, we have not been able to catch it. There was a questionable episode of ventricular fibrillation noted by the emergency personal when she 1st was transported from home to the hospital. However, there is no documentation. There is a possibility that this may have been an artifact. This has not been documented since her admission to the emergency room department. As I said, there is a possibility of a second-degree atrioventricular block that may be transient. 2. Severe coronary heart disease. Recent myocardial infarction with percutaneous intervention to the circumflex system in March 2019. 3. The patient has advanced chronic obstructive pulmonary disease with a question of pneumonia. 4. Nonspecific elevation of D-dimer. 5. Acute renal dysfunction. RECOMMENDATION: At this time, we will keep her on present medications. Close observation in the intensive care unit and we will consider a followup heart catheterization if there is indeed indication of ischemia at some point. At this time, she has ruled out for myocardial infarction thus far. Her EKG has not shown any indication of acute ischemic changes. cc: MD Armen Ricketts MD [facility]
[2019-10-13] MEDS: DUONEB (A & A) INH SCH ×6 (03:55→22:33)
[2019-10-13] MEDS: LASIX IV SCH ×2 (04:39→16:04)
[2019-10-13] MEDS: HUMULIN R SUBQ SCH ×4 (06:29→21:00)
--- NOTE | 2019-10-13 06:43 | EKG Report ---
Test Performed on : 10/13/2019 06:16:35 AM Test Reason : dyspnea Blood Pressure : / mmHG Vent. Rate : 079 BPM Atrial Rate : 079 BPM P-R Int : 138 ms QRS Dur : 130 ms QT Int : 404 ms P-R-T Axes : 073 006 049 degrees QTc Int : 463 ms Normal sinus rhythm. Possible Left atrial enlargement Right bundle branch block Abnormal ECG When compared with ECG of 12-OCT-2019 11:26, (Unconfirmed) T wave inversion now evident in Anterior leads Confirmed by Mike PERES, Lionel ([id number]) on 10/13/2019 11:40:31 AM
[2019-10-13 07:13] LABS: AGAP 12; BUN 19 mg/dL (8-22); CALCIUM 8.8 mg/dL (8.8-10.2); CHLORIDE 98 mmol/L (98-107); COSMO 282; CREATININE 0.8 mg/dL (0.5-0.9); ESTIMATED GFR > 60; GLUCOSE 166 mg/dL (70-104); MAGNESIUM 1.9 mg/dL (1.5-2.7); POTASSIUM 3.3 mmol/L (3.5-5.1); SODIUM 138 mmol/L (136-145); TCO2 28 mmol/L (25-35)
[2019-10-13] MEDS ORDERED: KLOR-CON PO ONE (07:54)
[2019-10-13] MEDS: MAG-OX PO SCH (08:12)
[2019-10-13] MEDS: VITAMIN D PO SCH (08:12)
[2019-10-13] MEDS: ASPIRIN PO SCH (08:12)
[2019-10-13] MEDS: BUSPAR PO SCH ×3 (08:12→21:02)
[2019-10-13] MEDS: PRILOSEC PO SCH ×2 (08:12→21:02)
[2019-10-13] MEDS: ZYLOPRIM PO SCH (08:12)
[2019-10-13] MEDS: BRILINTA PO SCH ×2 (08:12→21:02)
[2019-10-13] MEDS: MEVACOR PO SCH (08:12)
[2019-10-13] MEDS: TENORMIN PO SCH (08:13)
[2019-10-13] MEDS: SOLU-MEDROL IV SCH ×2 (08:13→16:04)
[2019-10-13] MEDS: CALTRATE 600 PO SCH (09:50)
[2019-10-13] MEDS: BIOTIN PO SCH (09:50)
[2019-10-13] MEDS: SYMBICORT 160/4.5 MICROGM INHALER INH SCH ×2 (11:34→19:43)
--- NOTE | 2019-10-13 14:21 | PROGRESS NOTE ---
DATE: 10/13/2019 SUBJECTIVE: Ms. Mendes was admitted to [facility] with acute respiratory failure secondary to acute on chronic congestive heart failure secondary to systolic dysfunction as well as acute chronic obstructive pulmonary disease exacerbation complicated by tracheobronchitis. Her CT of the chest demonstrated advanced COPD and interstitial pulmonary edema, no pneumonia was noted. She is on nebulizer treatments, antibiotics including Rocephin and vancomycin. She is maintaining O2 saturations of 95% to 100% on a 50% Ventimask. She reports that she continues with a persistent cough productive of yellowish sputum, pleuritic chest pain with deep inspiration paroxysms of cough. She has had no fever or chills. Her most recent echocardiogram demonstrated normal LV function with mild diastolic dysfunction and mitral regurgitation. OBJECTIVE: Vital Signs: Temperature 97.6 degrees, pulse 79, respirations 23, BP 116/59. Cardiovascular: Regular rate and rhythm. Lungs: Crackles in the bases bilaterally. Abdomen: Soft, nontender, with active bowel sounds. Extremities: Trace ankle edema. ASSESSMENT AND PLAN: 1. Acute respiratory failure secondary to acute on chronic congestive heart failure secondary to diastolic dysfunction and acute chronic obstructive pulmonary disease exacerbation complicated by a tracheobronchitis. She had periods of hypotension last night and was placed on a Levophed drip for few hours. She is now off the Levophed and her blood pressure is stable. I am going to hold the Toprol, we will continue gentle diuresis with Lasix. We will continue broad-spectrum antibiotics, nebulizer treatments, and I am going to add IV steroids as well as Symbicort. 2. Syncopal episode. I suspect that she is having some arrhythmias, I wonder if she has sick sinus syndrome where she is having pauses or marked bradycardia. She had a normal Myoview GXT in 08/2019, she had angioplasty in 03/2019. She denies any chest pain, palpitations or anginal equivalents. Cardiac enzymes are within normal limits. cc: Armen Cantu MD
[2019-10-13] MEDS: ROCEPHIN 1 GM in NS 50 ML IV SCH (16:04)
[2019-10-13] MEDS: LR 1,000 ML IV SCH (16:05)
[2019-10-13] MEDS: NEURONTIN PO SCH (21:02)
--- NOTE | 2019-10-14 | EEG REPORT ---
DATE: 10/12/2019 COMMENT: This is a digitally recorded EEG on a 79-year-old patient with reported episodes, question of syncope or seizure. FINDINGS: During waking, medium amplitude 9.5 to 10 hertz posterior rhythm is present bilaterally and reacts at times to eye opening. Background contains abundant polymorphic and rhythmic theta frequencies across the frontal and central regions. There were several brief bursts of higher amplitude generalized slowing into the delta range while awake. Some muscle contraction, movement and ICU artifacts were apparent and did not hinder interpretation. Photic stimulation did not significantly alter the record. Drowsing occurred with appearance of more generalized slowing and attenuation of the posterior rhythm. Stage II sleep was not recorded. No definite epileptiform discharge was identified. INTERPRETATION: Abnormal EEG because of generalized slowing. CORRELATION: This is indicative of a diffuse encephalopathy and is nonspecific. The absence of epileptiform discharges on a single EEG does not exclude a clinical diagnosis of seizures. cc: MD Armen Lee III, MD [facility]
[2019-10-14] MEDS: SOLU-MEDROL IV SCH ×3 (00:11→16:07)
--- NOTE | 2019-10-14 01:19 | Carotid Study ---
DATE: 10/12/2019 STUDY: Bilateral duplex and color flow imaging of the carotid arteries performed using a GE Vivid E9 ultrasound system with a 9L-D transducer. REFERRING PROVIDER: ANTONY Stack ALLOCATIONS CLERK: Ting Aguirre RVT INDICATIONS: A 79-year-old female with syncope. FINDINGS: The velocities in cm/sec in both carotid systems were reviewed. The right ICA/CCA ratio is 2.85, corresponding to a percent stenosis of 80% to 99%. The left ICA/CCA ratio is 0.97, corresponding to a percent stenosis of 0 to 39%. There was retrograde flow in the left vertebral artery, with probable left subclavian artery stenosis. INTERPRETATION: Severe to critical stenosis at the takeoff of the right internal carotid artery, which appears to be hemodynamically significant. There is only mild atherosclerotic disease involving the left carotid system, without evidence of a hemodynamically significant lesion on that side. There is retrograde flow in the left vertebral artery and there is probable stenosis or occlusion of the left subclavian artery. cc: MD Armen Vaughan MD
--- NOTE | 2019-10-14 01:24 | Extremity Venous Study ---
PROCEDURE NAME: Venous U/S Bilateral Legs - 10/12/2019 STUDY: Bilateral lower extremity venous duplex and color flow imaging study using the [employer] Vivid E9 ultrasound system with a 9L-D transducer. REFERRING PROVIDER: YARITZA Mcneill AGE: A 79-year-old female. PROJECT CONTROL OFFICER: Ting Aguirre, HENRY INDICATIONS: Elevated D-dimer, rule out deep venous thrombosis. FINDINGS: The right common femoral vein and its branches, deep and superficial femoral veins were satisfactorily imaged. They had flow through them and were compressible. The right popliteal vein and deep veins below the right knee were all compressible and had flow through them. Superficial veins of the right lower extremity were compressible throughout their length. The left common femoral vein and its branches, deep and superficial femoral veins were also satisfactorily imaged. They had flow through them and were compressible. The left popliteal vein and deep veins below the left knee were all compressible and had flow through them. Superficial veins of the left lower extremity were compressible throughout their length. INTERPRETATION: No evidence of acute deep or superficial venous thrombosis of the bilateral lower extremities. cc: MD Nellie Vaughan PA M. Neel Roberts, MD
[2019-10-14] MEDS: DUONEB (A & A) INH SCH ×6 (03:05→22:46)
[2019-10-14] MEDS: LASIX IV SCH (04:58)
[2019-10-14] MEDS: HUMULIN R SUBQ SCH ×4 (06:25→21:17)
[2019-10-14] MEDS: SYMBICORT 160/4.5 MICROGM INHALER INH SCH ×2 (08:04→19:03)
[2019-10-14] MEDS: LR 1,000 ML IV SCH (08:13)
[2019-10-14] MEDS: CALTRATE 600 PO SCH (08:14)
[2019-10-14] MEDS: TENORMIN PO SCH (08:14)
[2019-10-14] MEDS: MAG-OX PO SCH (08:14)
[2019-10-14] MEDS: ASPIRIN PO SCH (08:14)
[2019-10-14] MEDS: PRILOSEC PO SCH ×2 (08:14→21:17)
[2019-10-14] MEDS: MEVACOR PO SCH (08:14)
[2019-10-14] MEDS: BUSPAR PO SCH ×3 (08:14→21:17)
[2019-10-14] MEDS: ZYLOPRIM PO SCH (08:14)
[2019-10-14] MEDS: BRILINTA PO SCH ×2 (08:14→21:17)
[2019-10-14] MEDS: BIOTIN PO SCH (08:15)
--- NOTE | 2019-10-14 11:11 | Diag Imaging Result Doc PS360 ---
EXAM: CHEST-PORTABLE HISTORY: chf TECHNIQUE: Single view COMPARISON: 10/11/2019 FINDINGS: The pulmonary vessels are distended. Questionable tiny left effusion. The heart is not enlarged. Poor inspiratory effort. IMPRESSION: Persistent pulmonary edema with no improvement Electronically signed by Otto Newby 10/14/2019 11:09 AM
--- NOTE | 2019-10-14 14:47 | ECHO REPORT ---
ORDER DATE: 10/12/2019 ECHOCARDIOGRAPHIC MEASUREMENTS: 1. Interventricular septum 0.9. 2. Left ventricular posterior wall 0.8. 3. Diastolic diameter 5.3. 4. Left atrium 4.2. 5. Aorta 3.2. SUMMARY: 1. Normal left ventricular cavity size. 2. Estimated ejection fraction of 65 to 70 percent. 3. There is grade 2 diastolic dysfunction. 4. There is left atrial enlargement. 5. Aortic valve leaflets are trileaflet. 6. By Doppler studies there is no aortic stenosis or regurgitation. 7. There is mild to moderate mitral regurgitation. 8. Mild to moderate tricuspid regurgitation. 9. Peak velocity across the tricuspid valve was 3.2 m/sec. 10. Pulmonary systolic pressure of 52 mmHg. 11. Peak velocity across the aortic valve less than 2 m/sec. 12. There is no aortic stenosis or regurgitation. 13. There is no pericardial effusion or obvious intracardiac mass or thrombus seen. cc: MD Dash Verdin MD M. Neel Roberts, MD
[2019-10-14] MEDS: ROCEPHIN 1 GM in NS 50 ML IV SCH (16:07)
--- NOTE | 2019-10-14 17:57 | EKG Report ---
Test Performed on : 10/14/2019 07:11:40 AM Test Reason : dyspnea Blood Pressure : / mmHG Vent. Rate : 077 BPM Atrial Rate : 077 BPM P-R Int : 144 ms QRS Dur : 126 ms QT Int : 430 ms P-R-T Axes : 072 003 033 degrees QTc Int : 486 ms Normal sinus rhythm. Possible Left atrial enlargement Right bundle branch block Possible Inferior infarct , age undetermined Abnormal ECG When compared with ECG of 13-OCT-2019 06:16, Borderline criteria for Inferior infarct are now present Confirmed by Mike PERES, Lionel ([id number]) on 10/16/2019 8:26:29 AM
--- NOTE | 2019-10-14 18:05 | PROGRESS NOTE ---
DATE: 10/14/2019 Mrs. Mendes was admitted to [facility] with acute respiratory failure secondary to acute on chronic congestive heart failure secondary to systolic dysfunction as well as acute chronic obstructive pulmonary disease exacerbation complicated by tracheobronchitis. Clinically, she is improving slowly. She is breathing more comfortably. She is maintaining O2 saturations of 94 to 96% on 6 L of O2 per nasal cannula. She continues with mild pleuritic chest pain and cough productive of clear to yellowish sputum. She was also admitted to [facility] with acute on chronic congestive heart failure secondary to diastolic dysfunction. She had good urine output of 3000 and she has had a negative I's and O's of 3181 mL over the past [address] scan of the thorax demonstrated no evidence of blood clots, noninvasive venous studies were negative. She was noted to have a critical lesion of the right internal carotid artery of 80 to 95 percent. Temperature 98.4 degrees, pulse 75, respirations 17, BP 142/66. CV: Regular rate and rhythm. Lungs: Distant breath sounds with increased period of expiration. There are faint crackles in the bases. Abdomen: Soft, nontender, with active bowel sounds. Extremities: Without edema. ASSESSMENT AND PLAN: 1. Acute respiratory failure secondary to acute on chronic exacerbation of diastolic congestive heart failure. Because of episodes of bradycardia we had stopped the beta blockers. We will continue a salt and fluid restricted diet and continue diuresis with Lasix. We will continue to titrate downward on her O2 as long as her O2 saturations remain greater than 92%. 2. Acute chronic obstructive pulmonary disease exacerbation with tracheobronchitis. We will continue Symbicort 160/4.5 two puffs b.i.d., DuoNeb nebulizer treatments q.6 hours and IV Solu-Medrol. We will continue broad-spectrum antibiotics. 3. Critical right internal carotid artery stenosis. She had angioplasty and stenting of multiple vessels in March 2019. She is currently on Brilinta. We will continue Brilinta 90 mg b.i.d., once she is stabilized we will make arrangements for her to see her typewriter assembler for clearance for surgery and to see at what point she can safely proceed with surgery given the fact that she had angioplasty in March. cc: Armen Cantu MD
[2019-10-14] MEDS: NEURONTIN PO SCH (21:17)
[2019-10-15] MEDS: SOLU-MEDROL IV SCH ×3 (00:43→15:42)
--- NOTE | 2019-10-15 01:13 | PROGRESS NOTE ---
DATE: 10/14/2019 SUBJECTIVE: The patient continues without chest discomfort or shortness of breath on room air. OBJECTIVE: Vital signs: Blood pressure 120/55, heart rate 81, oxygen saturation 95% to 98% on room air. HEENT: Mucous membranes moist. Neck: Supple with normal central venous pressure suggested on inspection of neck veins. Chest: Clear to auscultation. Cardiac: Reveals a regular rate and rhythm without appreciable murmur or gallop. Extremities: Without edema. LABORATORY DATA: Demonstrates sodium 138, potassium 3.3, chloride 98, carbon dioxide 28, BUN 19, creatinine 0.8. Glucose 166. IMPRESSION: 1. Recent recurrent episodes of syncope. Consider possible bradyarrhythmia, but also consider orthostatic hypotension. Patient has been on diuretic therapy with Lasix 80 mg daily for treatment of edema and she has a history of significant venous insufficiency lower extremities. Left ventricular ejection fraction is normal. 2. Atherosclerotic coronary disease. Patient is status post previous coronary intervention most recently in March 2019. 3. Chronic obstructive pulmonary disease. 4. Prerenal azotemia, . now improved. 5. Obesity. 6. Venous insufficiency lower extremities with history of bilateral vein stripping procedure in the past. RECOMMENDATIONS: 1. Discontinue Lasix. 2. Discontinue IV fluids. 3. Continue to monitor on telemetry as patient mobilizes. 4. Consider ambulatory ECG event recorder at time of discharge. cc: MD Armen Carmona MD
[2019-10-15] MEDS: DUONEB (A & A) INH SCH ×6 (03:18→23:09)
[2019-10-15 06:05] LABS: HEMATOCRIT 36.9 % (37.0-47.0); HEMOGLOBIN 11.6 g/dL (12.0-16.0); MCH 29.7 PG (27-31); MCHC 31.4 g/dL (33-37); MCV 94.6 FL (81-99); MPV 10.5 FL (7.4-10.4); RBC 3.9 XMIL (4.2-5.4); RDW 14.9 % (11.5-14.5); WBC 13.71 X1000 (4.8-10.8)
--- NOTE | 2019-10-15 06:37 | EKG Report ---
Test Performed on : 10/15/2019 06:16:48 AM Test Reason : dyspnea Blood Pressure : / mmHG Vent. Rate : 081 BPM Atrial Rate : 081 BPM P-R Int : 136 ms QRS Dur : 120 ms QT Int : 396 ms P-R-T Axes : 073 010 047 degrees QTc Int : 460 ms Normal sinus rhythm. Right bundle branch block Abnormal ECG When compared with ECG of 14-OCT-2019 07:11, (Unconfirmed) Borderline criteria for Inferior infarct are no longer present Confirmed by Mike PERES, Lionel ([id number]) on 10/16/2019 8:28:53 AM
[2019-10-15] MEDS: HUMULIN R SUBQ SCH ×4 (06:39→21:15)
[2019-10-15 06:57] LABS: AGAP 14; BUN 28 mg/dL (8-22); CALCIUM 9.6 mg/dL (8.8-10.2); CHLORIDE 99 mmol/L (98-107); COSMO 287; CREATININE 0.7 mg/dL (0.5-0.9); ESTIMATED GFR > 60; GLUCOSE 199 mg/dL (70-104); POTASSIUM 4.2 mmol/L (3.5-5.1); SODIUM 138 mmol/L (136-145); TCO2 25 mmol/L (25-35)
[2019-10-15] MEDS: SYMBICORT 160/4.5 MICROGM INHALER INH SCH ×2 (07:56→19:30)
[2019-10-15] MEDS: ASPIRIN PO SCH (08:51)
[2019-10-15] MEDS: BRILINTA PO SCH ×2 (08:51→21:10)
[2019-10-15] MEDS: PRILOSEC PO SCH ×2 (08:51→21:10)
[2019-10-15] MEDS: ZYLOPRIM PO SCH (08:51)
[2019-10-15] MEDS: CALTRATE 600 PO SCH (08:51)
[2019-10-15] MEDS: MEVACOR PO SCH (08:51)
[2019-10-15] MEDS: MAG-OX PO SCH (08:51)
[2019-10-15] MEDS: BUSPAR PO SCH ×3 (08:51→21:11)
[2019-10-15] MEDS: BIOTIN PO SCH (08:52)
--- NOTE | 2019-10-15 11:40 | PROGRESS NOTE ---
DATE: 10/15/2019 SUBJECTIVE: Mrs. Mendes continues to improve. She continues to breathe more comfortably. She denies any PND, orthopnea, or increasing peripheral edema. She is maintaining O2 saturations of 95% to 96% on 5 L of O2 per nasal cannula. Chest x-ray still shows some increased interstitial edema. She remains in normal sinus rhythm. She has had no episodes of atrial fibrillation or atrial flutter. Sugars are fluctuating. Blood sugars range from 174 to 278. OBJECTIVE: Vital Signs: Temperature 98.1 degrees, pulse 76, respirations 18, BP 132/69. CV: Regular rate and rhythm. Lungs: Faint crackles in the bases bilaterally. Abdomen: Soft, nontender, with active bowel sounds. Extremities: Without edema. ASSESSMENT AND PLAN: 1. Acute respiratory failure with hypoxia secondary to acute on chronic congestive heart failure secondary to systolic dysfunction and acute chronic obstructive pulmonary disease exacerbation with tracheobronchitis. We will continue a salt and fluid restricted diet. We will back down on her diuretics. We will continue Solu-Medrol, Symbicort, and nebulizer treatments. I will increase activity. She may sit up in a chair, and begin to walk in the halls. We will plan on transferring her to the [facility]. 2. Type 2 noninsulin-dependent diabetes mellitus. Sugars are trending upward because of the steroids. We will continue pattern sugars and a Humulin R sliding scale. cc: Armen Cantu MD
[2019-10-15] MEDS: ROCEPHIN 1 GM in NS 50 ML IV SCH (15:42)
[2019-10-15] MEDS: NEURONTIN PO SCH (21:10)
[2019-10-15] MEDS: NORCO-10 PO PRN (22:30)
[2019-10-16] MEDS: SOLU-MEDROL IV SCH ×2 (00:34→08:44)
[2019-10-16] MEDS: DUONEB (A & A) INH SCH ×6 (03:10→23:09)
[2019-10-16] MEDS: SYMBICORT 160/4.5 MICROGM INHALER INH SCH ×3 (03:48→19:29)
[2019-10-16] MEDS: HUMULIN R SUBQ SCH ×4 (06:30→21:33)
[2019-10-16] MEDS: BRILINTA PO SCH ×2 (08:43→21:32)
[2019-10-16] MEDS: PRILOSEC PO SCH ×2 (08:43→21:32)
[2019-10-16] MEDS: ASPIRIN PO SCH (08:43)
[2019-10-16] MEDS: MAG-OX PO SCH (08:43)
[2019-10-16] MEDS: ZYLOPRIM PO SCH (08:43)
[2019-10-16] MEDS: BUSPAR PO SCH ×3 (08:43→21:32)
[2019-10-16] MEDS: MEVACOR PO SCH (08:43)
[2019-10-16] MEDS: VITAMIN D PO SCH ×2 (08:56→09:29)
[2019-10-16] MEDS: BIOTIN PO SCH ×2 (08:56→09:30)
[2019-10-16] MEDS: CALTRATE 600 PO SCH ×2 (08:57→09:30)
--- NOTE | 2019-10-16 11:10 | CARDIOLOGY PROGRESS NOTE ---
DATE: 10/16/2019 CHIEF COMPLAINT: Syncope. Shortness of breath. SUBJECTIVE: Mrs. Mendes has not experienced any further syncopal episodes. Telemetry has been checked daily and nothing has really panned out as far as serious arrhythmia that would explain her passing out. She feels fine. She is sitting up in the chair, a little tremors. Daughter-in- law is by the bedside. She says that her appetite is not too good. Bowels are working fine. She has no pain at this time. OBJECTIVE: Vital Signs: Blood pressure is 160/56, temperature 97.8, pulse 101, respirations 17. Telemetry indicates sinus rhythm; sinus tachycardia. General: She is awake, alert, and elderly. HEENT: Unremarkable. Chest: Diminished breath sounds without wheezing. Cardiovascular: Heart sounds are regular and rhythmic. I do not hear a gallop or murmur. Abdomen: Nontender. Extremities: Show no edema. Neurologic: She is a little tremulous and shaky. Otherwise, she seems to be mentating well. LABORATORY DATA: White cell count 13,710, hemoglobin 11.6 grams. Sodium 138, potassium 4.2, BUN 28, creatinine 0.7. IMPRESSION: This is a patient who presented to the hospital with: 1. Question of syncope and question of ventricular arrhythmia. None of that has recurred to a significant degree and the only episodes where she appeared to be losing consciousness in the hospital appeared to coincide with a slowing of the heart rate and a question of very transient atrial arrhythmia in the form of non conducted premature atrial contractions, question of second degree atrioventricular block. Unfortunately, none of that was fully documented. 2. Advanced chronic obstructive pulmonary disease with acute bronchitis. 3. Carotid ultrasound indicating a 90% stenosis at the takeoff of the right internal carotid artery that appears to be significant per Dr. Arroyo's report. 4. Diastolic heart failure. The patient has a normal echocardiogram and proBNP level minimally elevated at 974 picograms per mL as of 10/12/2019. RECOMMENDATIONS: At this time I would suggest to continue supportive therapy. There is no indication of active ischemia or non ST elevation ND at this time. There is no evidence of severe LV dysfunction. There is no evidence of recurrent arrhythmia. I believe the patient may be discharged home at the convenience of Dr. Cantu and I agree with him that she needs to be referred back to her pvc loader for final decision making regarding whether or not an implantable loop recorder would be a good idea for her to track her fainting spells and also to intervene on the recently identified stenosis of the right internal carotid artery. At this time I am going to sign off. Please call me if further assistance is needed. cc: MD Armen Ricketts MD
[2019-10-16] MEDS: PREDNISONE PO SCH (14:08)
--- NOTE | 2019-10-16 14:45 | PROGRESS NOTE ---
DATE: 10/16/2019 Ms. Mendes has not had any further syncopal episodes. She has had no further easily identifiable arrhythmias. A carotid ultrasound demonstrated a critical lesion of 80 to 95 percent of the right internal carotid artery. She has had no TIA type symptoms. She is breathing much more comfortably. She is maintaining O2 saturations of 94 to 98 percent on 5 L of O2. She denies any PND, orthopnea or increasing peripheral edema. She has ambulated out in the halls without significant shortness of breath. Her cough has largely resolved. Blood sugars are fluctuating in the range of 194 to 255. Temperature 98 degrees, pulse 89, respirations 19, BP 188/73.CV: Regular rate and rhythm. Lungs: Distant breath sounds with increased period of expiration. No crackles in the bases. Abdomen: Soft, nontender, with active bowel sounds. Extremities: Without edema. ASSESSMENT AND PLAN: 1. Acute respiratory failure with hypoxia. The etiology of the acute respiratory failure was a combination of acute on chronic congestive heart failure secondary to systolic dysfunction and acute chronic obstructive pulmonary disease exacerbation with tracheobronchitis. We will continue to wean down off oxygen as long as O2 saturations are greater than 92%. We will continue Symbicort nebulizer treatments and I will transition her to oral antibiotics. I will began Levaquin 500 mg daily. We will wean her off IV steroids and transition her to oral steroids. We will increase activity. We will continue a salt and fluid restricted diet and switch her to oral Lasix. We will consult [facility] to arrange for home health referral for Ms. Mendes. 2. Critical stenosis of the right internal carotid artery. I have called her medicare biller, Dr. Javid Cruz in [place], [place] and awaiting a call back from him as to when we could safely consider considering surgery given that she had angioplasty and placement of drug- eluting stents in March 2019. She is currently on Brilinta. cc: Armen Cantu MD
[2019-10-16] MEDS: NORCO-10 PO PRN (18:45)
[2019-10-16] MEDS: NEURONTIN PO SCH (21:32)
[2019-10-17] MEDS: NORCO-10 PO PRN (00:22)
[2019-10-17] MEDS: DUONEB (A & A) INH SCH ×4 (03:21→16:35)
[2019-10-17] MEDS ORDERED: LASIX IV ONE (06:02)
[2019-10-17] MEDS: HUMULIN R SUBQ SCH ×3 (06:27→16:20)
[2019-10-17] MEDS ORDERED: GLUCOPHAGE PO SCH (08:00)
[2019-10-17] MEDS: BIOTIN PO SCH (08:43)
[2019-10-17] MEDS: BRILINTA PO SCH (08:44)
[2019-10-17] MEDS: BUSPAR PO SCH ×2 (08:44→13:09)
[2019-10-17] MEDS: ZYLOPRIM PO SCH (08:44)
[2019-10-17] MEDS: PRILOSEC PO SCH (08:44)
[2019-10-17] MEDS: MAG-OX PO SCH (08:44)
[2019-10-17] MEDS: ASPIRIN PO SCH (08:44)
[2019-10-17] MEDS: PREDNISONE PO SCH (08:44)
[2019-10-17] MEDS: MEVACOR PO SCH (08:44)
[2019-10-17] MEDS: CALTRATE 600 PO SCH (08:44)
[2019-10-17] MEDS ORDERED: MIRALAX PO SCH (09:00)
[2019-10-17] MEDS ORDERED: CENTRUM SILVER PO SCH (09:00)
[2019-10-17] MEDS ORDERED: TOPROL XL PO SCH (09:00)
[2019-10-17] MEDS ORDERED: MIRAPEX PO SCH (09:00)
--- NOTE | 2019-10-17 09:40 | PROGRESS NOTE ---
DATE: 10/17/2019 SUBJECTIVE: Ms Mendes was admitted to [facility] [place] with acute respiratory failure with hypoxia secondary to a combination of acute on chronic congestive heart failure secondary to diastolic dysfunction as well as acute chronic obstructive pulmonary disease exacerbation. We were able to wean her off oxygen completely yesterday and she was maintaining O2 saturations of 95% to 98% on room air. During the night she desaturated and her O2 saturations dropped to 88% on room air. This morning, she is breathing comfortably. O2 saturations are ranging from 96% to 98% on 2 L of O2. She does not have any persistent cough, pleuritic chest pain or other URI type symptoms. She did have some faint crackles on exam. Blood sugars are fluctuating. Her sugars are in the 200s. She has polyuria a polydipsia. OBJECTIVE: Temperature 98.2 degrees, pulse 106 respirations 23 BP 111/73 CV tachycardic regular S1, S2. Lungs crackles in the bases bilaterally. Abdomen soft, nontender, with active bowel sounds. Extremities trace ankle edema. ASSESSMENT AND PLAN: 1. Acute respiratory failure with hypoxia secondary to acute on chronic congestive heart failure secondary to diastolic dysfunction. She sounds a little bit wet this morning. I am going to give her 1 time dosage of Lasix 60 mg IV x1 dose and titrate upward on the Toprol to improve cardiac compliance. We will check a PA and lateral chest x-ray. We will recheck a room air O2 saturation and stop the oxygen if her O2 saturations greater than 90%. 2. 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 Blood sugars are too high. Her sugars have been exacerbated by IV methylprednisolone and she is now on low- dose prednisone. We will continue pattern sugars, Humulin R sliding scale and resume her regular home dosage of metformin. cc: Armen Cantu MD
--- NOTE | 2019-10-17 11:03 | Diag Imaging Result Doc PS360 ---
EXAM: CHEST-2 VIEWS 10/17/2019 HISTORY: CHF TECHNIQUE: PA and lateral chest COMMENT: Compared to 10/14/2019 the left base has cleared somewhat with some residual platelike opacity in the costophrenic angle region. IMPRESSION: Improved atelectasis or pneumonia left lower lobe. Electronically signed by Nader Martinez 10/17/2019 11:00 AM
[2019-10-17] MEDS: SYMBICORT 160/4.5 MICROGM INHALER INH SCH ×2 (11:52)
[2019-10-17 15:41] VITALS: BP 137/95
[2019-10-17] MEDS ORDERED: DESYREL PO SCH (21:00)
--- NOTE | 2019-11-16 10:52 | DISCHARGE SUMMARY ---
ADMISSION DATE: 10/12/2019 DISCHARGE DATE: 10/17/2019 DISCHARGE DIAGNOSES: 1. Syncope. 2. Acute respiratory failure with hypoxia. 3. Acute on chronic diastolic congestive heart failure. 4. Gastroesophageal reflux disease. 5. 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 6. Mixed hyperlipidemia. 7. Chronic low back pain secondary to lumbar spinal stenosis with neurogenic claudication. 8. Mixed hyperlipidemia. 9. Depression. DISCHARGE INSTRUCTIONS: Return to clinic in 1 week to see me, Dr. Doug Cantu, in anticipation of a transition of care visit. ACTIVITY: As tolerated. DIET: 1800 calorie ADA diet. MEDICATIONS: 1. Metformin 500 mg b.i.d., [place] 10 1 q.6 hours p.r.n. pain, prednisone 20 mg daily, omeprazole 20 mg b.i.d., metoprolol 25 mg daily, Tylenol 650 mg q.6 hours p.r.n. pain, Symbicort 160/4.5 two puffs b.i.d., allopurinol 300 mg daily, biotin 1000 mcg daily, calcium carbonate 600 mg plus B b.i.d., gabapentin 1200 mg at night, lovastatin 40 mg at bedtime, multivitamin 1 p.o. daily, MiraLAX 17 g in 8 ounces of water daily KCl 10 mEq daily, trazodone 150 mg at bedtime p.r.n. insomnia. Aspirin 81 mg daily. 2. Mirapex 0.5 mg daily, BuSpar 15 mg b.i.d., magnesium oxide 400 mg daily, Brilinta 90 mg b.i.d., Lasix 80 mg daily. DISCHARGE PHYSICAL EXAMINATION: General: This is a well-developed, well-nourished 79-year-old lady in no apparent Distress. She is afebrile. Vital signs: Stable. Cardiovascular: Regular rate and rhythm. Lungs: Clear. Abdomen: Soft nontender with active bowel sounds. No hepatosplenomegaly. No abdominal bruits. HOSPITAL COURSE: She was admitted to [facility] with acute respiratory failure secondary to acute on chronic congestive heart failure secondary to diastolic dysfunction as well as an acute chronic obstructive pulmonary disease exacerbation complicated by tracheobronchitis. Her CT of the chest demonstrated advanced COPD and interstitial pulmonary edema. We started her on supplemental O2 nebulizer treatments and IV antibiotics including Rocephin and vancomycin. We continued her on a salt and fluid restricted diet and aggressively diuresed her with Lasix. We continued Solu-Medrol, Symbicort and nebulizer treatments for the COPD exacerbation. Over the course of her hospitalization she made good clinical progress. We continued a salt and fluid restricted diet. We transitioned her to oral Lasix. We weaned her off IV steroids and continued her regular nebulizers. She was maintaining O2 saturations of 96% to 98 percent at rest and with exertion. We continued her on Brilinta, Toprol to improve cardiac compliance and Lasix. I asked her to weigh daily and she could take an additional Lasix if she gains 2 pounds in 24 hours. She had a syncopal episode. She remained in normal sinus rhythm throughout her hospitalization. She had recently had a stress test and an echo, which demonstrated no reversible ischemia or wall motion abnormalities. 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 I had talked to Dr. Cruz and he felt that we could stop the Brilinta to proceed with surgery. He recommended Dr. Espinoza and an office visit was set up for Vaughn to see Dr. Espinoza for surgical evaluation. DISPOSITION: Having reached maximum hospital benefit, the patient was discharged in stable condition. cc: Armen Cantu MD
== END 2019-10-17 17:15 | disposition home or self-care (01) | DRG 291 ==
LOC: SUPCPDRO → ED 23:10 → EDIPHOLD 10-12 03:12 → SUATTDRO 10-12 03:12 → ICU 10-12 12:59 → 2N 10-15 17:30
PROVIDERS: ADMIT Internal Medicine; ATTEND Internal Medicine

== ENCOUNTER 2019-11-09 21:03 | Observation (INO) ==
--- NOTE | 2019-11-09 21:52 | Diag Imaging Result Doc PS360 ---
EXAM: CHEST-PORTABLE INDICATION: syncope TECHNIQUE: One view COMPARISON: 10/17/2019 FINDINGS: The central vasculature is prominent suggesting possible mild pulmonary venous congestion. There is minimal subsegmental atelectasis at the periphery of the left midlung zone. Cardiac silhouette is grossly unremarkable. IMPRESSION: Suggestion of mild pulmonary venous congestion. Electronically signed by Evan Townsend 11/09/2019 9:49 PM
[2019-11-09 22:06] LABS: BASO# 0.04 X1000 (0.0-0.2); BASO% 0.7 % (0.0-0.8); EOS# 0.29 X1000 (0.0-0.7); EOS% 5.1 % (0.0-10.0); HEMOGLOBIN 11.9 g/dL (12.0-16.0); IMM GRAN# 0.04 X1000 (0.0-0.04); IMM GRAN% 0.7 % (0.0-0.5); LYMPH# 0.96 X1000 (1.2-3.4); LYMPH% 16.9 % (20.5-51.1); MCH 29.2 PG (27-31); MCHC 30.5 g/dL (33-37); MCV 95.8 FL (81-99); MONO# 0.66 X1000 (0.11-0.59); MONO% 11.6 % (1.7-9.3); MPV 9.9 FL (7.4-10.4); PLT 283 X1000 (130-400); RBC 4.07 XMIL (4.2-5.4); RDW 16.3 % (11.5-14.5); WBC 5.69 X1000 (4.8-10.8)
[2019-11-09 22:28] LABS: ALB/GLOB RATIO 2.7; CALCIUM 9.7 mg/dL (8.8-10.2); CREATININE 1.1 mg/dL (0.5-0.9); POTASSIUM 4.4 mmol/L (3.5-5.1); TOTAL BILIRUBIN 0.26 mg/dL (0.20-1.00); TOTAL PROTEIN 5.5 g/dL (6.3-8.3)
--- NOTE | 2019-11-10 01:27 | PROVIDER DOCUMENTATION ---
This chart was entered by Paula Romeo Scribe, acting as scribe for Dax Perez MD. HPI-Syncope/Dizziness - General Chief Complaint: Syncope Stated Complaint: syncope Time Seen by Provider: 11/09/19 21:18 Source: patient, family () Allergies/Adverse Reactions: Patient Allergies Allergy/AdvReac Type Severity Reaction Status Date / Time baclofen Allergy HEADACHE Verified 10/12/19 01:10 methocarbamol Allergy NAUSEA/VOMI Verified 10/12/19 01:10 TING Home Medications: Home Medication List Medication Instructions Recorded Confirmed Last Taken Type Allopurinol [Zyloprim] 300 mg PO DAILY 08/21/19 10/12/19 10/11/19 13:00 History Aspirin 81 mg PO DAILY 08/21/19 10/12/19 10/11/19 08:00 History Biotin 1,000 mcg PO DAILY 08/21/19 10/12/19 10/11/19 08:00 History C,E,Zinc,Copper 11/Vrbce8l/Lut 1 cap PO DAILY 08/21/19 10/12/19 10/11/19 08:00 History [Ocuvite Adult 50 Plus Softgel] Calcium Carbonate [Calcium] 600 mg PO DAILY 08/21/19 10/12/19 10/11/19 14:00 History Cyanocobalamin S.l. [Vitamin B-12] 25,000 mcg PO DAILY 08/21/19 10/12/19 10/11/19 08:00 History Docusate Sodium [Colace] 1 - 4 tab PO DAILY PRN 08/21/19 10/12/19 10/11/19 08:00 History Gabapentin 1,200 mg PO QHS 08/21/19 10/12/19 10/11/19 20:00 History Lovastatin 40 mg PO DAILY 08/21/19 10/12/19 10/11/19 08:00 History Multivitamins/Minerals [Centrum 1 tab PO DAILY 08/21/19 10/12/19 10/11/19 08:00 History Silver] Polyethylene Glycol 3350 [Miralax] 1 dose PO DAILY 08/21/19 10/12/19 10/11/19 08:00 History Potassium Chloride 10 meq PO DAILY 08/21/19 10/12/19 10/11/19 08:00 History Pramipexole [Mirapex] 0.5 mg PO DAILY 08/21/19 10/12/19 10/11/19 08:00 History Trazodone HCl 150 mg PO QHS 08/21/19 10/12/19 10/11/19 20:00 History Vitamin B Complex [B Complex] 1 tab PO DAILY 08/21/19 10/12/19 10/11/19 08:00 History Buspirone HCl 15 mg PO BID 08/22/19 10/12/19 10/11/19 08:00 History Cholecalciferol (Vit D3) [Vitamin 1,000 unit PO MoFr cap 08/23/19 10/12/19 10/09/19 08:00 Rx D] Magnesium Oxide [Mag-Ox] 400 mg PO DAILY tab 08/23/19 10/12/19 10/11/19 08:00 Rx Furosemide [Lasix] 80 mg PO DAILY 10/12/19 10/12/19 10/11/19 08:00 History Hydrocodone/APAP 10 mg/325 mg 10 mg PO Q6H PRN PRN 10/12/19 10/12/19 10/11/19 08:00 History [[place]-10] Ticagrelor [Brilinta] 90 mg PO BID 10/12/19 10/12/19 10/11/19 08:00 History Acetaminophen [Tylenol] 650 mg PO Q6H PRN PRN tab 10/17/19 Unknown Rx Budesonide/Formoterol Inhaler 2 puff INH RTBID #1 inhaler 10/17/19 Unknown Rx [Symbicort 160/4.5 Microgm Inhaler] Hydrocodone/APAP 10 mg/325 mg 1 ea PO Q6H PRN PRN tab 10/17/19 Unknown Rx [[place]-10] Metformin [Glucophage] 500 mg PO BID CC tab 10/17/19 Unknown Rx Metoprolol Succinate E.r. [Toprol 25 mg PO DAILY #30 tab 10/17/19 Unknown Rx Xl] Omeprazole [Prilosec] 20 mg PO BID cap 10/17/19 Unknown Rx Prednisone 20 mg PO DAILY #10 tab 10/17/19 Unknown Rx - History of Present Illness-Syncope/Dizzy Nature of Presenting Problem: 79yof presents to ED cc syncope where she gets stiff and sticks tongue straight out and with LOC for about 20secs according to her . Pt also c/o dolan tonight. Pt denies loss of urine/bowels, blurry vision, CP, N/V/D. Pt was admitted on 10/12/19 to ICU for similar issue and dx with 80% blockage in neck of which she is scheduled to see surgeon on 11/13/2019. Pt has hx of CHF, DM, CAD and WI. If witnessed syncope, by whom?: Prior Episodes: reports: recent history (10/12/19) Onset/Duration: reports: just prior to arrival Timing: reports: resolved prior to arrival Position/Activity at time of episode: reports: activity (getting into bed) Symptoms prior to episode: reports: none Context: reports: lost consciousness Loss of Consciousness: brief (seconds) (20secs) Current Symptoms: reports: weakness, headache Similar symptoms previously: reports: previous diagnosis, tests, workup for same problem Recently Seen Here or By Another Healthcare Provider: Yes (seen 10/12/19) Review of Systems - Adult - REVIEW OF SYSTEMS - ADULT Constitutional: reports: see HPI, fatique. denies: chills, fever Eyes: reports: see HPI. denies: blurred vision, double vision Ears, Nose, Mouth & Throat: reports: no symptoms reported Cardiovascular: reports: see HPI. denies: chest pain, palpitations Respiratory: reports: no symptoms reported Gastrointestinal: reports: see HPI. denies: diarrhea, nausea, vomiting Genitourinary: reports: no symptoms reported Musculoskeletal: reports: no symptoms reported Integumentary: reports: no symptoms reported Neurological: reports: see HPI, headache/migraines, syncope Psychiatric: reports: no symptoms reported Endocrine: reports: no symptoms reported Hematologic/Lymphatic: reports: no symptoms reported Allergic/Immunologic: reports: no symptoms reported All Other Systems: Reviewed and Negative Past History - Adult - PAST MEDICAL HISTORY-ADULT Review of Records: reports: Old Records Reviewed, Nursing Assessment Review, Medications Reviewed, Social history reviewed & non-contributory. Major Childhood Illnesses: reports: denies history Cardiovascular: reports: cardiac disease, CAD, CHF, hyperlipidemia, WI Respiratory: reports: denies history Gastrointestinal: reports: denies history Obstetrical/Gynecological: reports: denies history Genitourinary: reports: denies history Musculoskeletal: reports: chronic pain (back, has had back surgeries) Neurological: reports: denies history Psychiatric: reports: denies history Endocrine/Immune: reports: Diabetes Other Conditions: reports: denies history - PRIOR SURGERIES/PROCEDURES Surgical/Procedure History: reports: other (stent placement, back surgeries) - IMMUNIZATION STATUS Childhood Immunizations: See Nurse Assessment Flu Vaccine: See Nurse Assessment - FAMILY HISTORY Family History: reviewed, not pertinent - SOCIAL HISTORY Smoking: denies Physical Exam-General - PHYSICAL EXAM-ADULT Initial Vital Signs Reviewed: Yes - CONSTITUTIONAL General Appearance: appears well, alert, no apparent distress. negative: anxious, combative - EYES Eyes: PERRL/EOMI, pink conjunctivae. negative: photophobia - HEAD, EARS, NOSE, MOUTH & THROAT HENMT: normocephalic/atraumatic, moist mucous membranes. negative: angioedema - NECK Neck: normal inspection - RESPIRATORY Respiratory: chest non-tender, normal breath sounds (with labored breathing), crackles (bilateral). negative: lungs clear, wheezing - CARDIOVASCULAR Cardiovascular: normal peripheral pulses, regular rate, rhythm, no edema. negative: bradycardia, tachycardia - GASTROINTESTINAL (ABDOMEN) Abdominal Exam: normal bowel sounds, non tender, soft. negative: rigid, rebound - MUSCULOSKELETAL Back Exam: normal inspection, no CVA tenderness, no vertebral tenderness Extremity: normal inspection, no pedal edema, no calf tenderness, normal capillary refill. negative: deformity - SKIN Integumentary: normal color. negative: diaphoresis, jaundice - PSYCHIATRIC Psych/Mental Status: normal mood/affect, oriented x 3. negative: anxious, disheveled Progress - PLAN OF CARE/RESULTS Progress/Plan/Lab Results: Vital Signs - 8 hr 11/09/19 21:33 11/09/19 21:54 Temperature 97.7 F Pulse Rate 78 Pulse Rate [Sitting] 87 Pulse Rate [Standing] 84 Pulse Rate [Supine] 73 Respiratory Rate 18 Blood Pressure 108/55 Blood Pressure [Sitting] 128/71 Blood Pressure [Standing] 135/62 Blood Pressure [Supine] 110/48 O2 Sat by Pulse Oximetry 96 Laboratory Results - last 24 hr 11/09/19 11/09/19 11/09/19 21:54 21:54 21:54 WBC 5.69 RBC 4.07 L Hgb 11.9 L Hct 39.0 MCV 95.8 MCH 29.2 MCHC 30.5 L RDW Std Deviation 16.3 H Plt Count 283 MPV 9.9 Immature Gran % (Auto) 0.7 H Neut % (Auto) 65.0 Lymph % (Auto) 16.9 L [place] % (Auto) 11.6 H Eos % (Auto) 5.1 Baso % (Auto) 0.7 Immature Gran # (Auto) 0.04 Neut # (Auto) 3.70 Lymph # (Auto) 0.96 L [place] # (Auto) 0.66 H Eos # (Auto) 0.29 Baso # (Auto) 0.04 D-Dimer, Quantitative 0.71 H Sodium 147 H Potassium 4.4 Chloride 107 Carbon Dioxide 26 Anion Gap 14 BUN 25 H Creatinine 1.1 H Estimated GFR/1.73 m2 48 BUN/Creatinine Ratio 23 Glucose 143 H POC Glucose Calculated Osmolality 299 Calcium 9.7 Total Bilirubin 0.26 AST 17 ALT 23 Alkaline Phosphatase 132 H Creatine Kinase 36 Troponin T Total Protein 5.5 L Albumin 4.0 Globulin 1.5 Albumin/Globulin Ratio 2.7 11/09/19 11/09/19 21:54 22:05 WBC RBC Hgb Hct MCV MCH MCHC RDW Std Deviation Plt Count MPV Immature Gran % (Auto) Neut % (Auto) Lymph % (Auto) [place] % (Auto) Eos % (Auto) Baso % (Auto) Immature Gran # (Auto) Neut # (Auto) Lymph # (Auto) [place] # (Auto) Eos # (Auto) Baso # (Auto) D-Dimer, Quantitative Sodium Potassium Chloride Carbon Dioxide Anion Gap BUN Creatinine Estimated GFR/1.73 m2 BUN/Creatinine Ratio Glucose POC Glucose 144 H Calculated Osmolality Calcium Total Bilirubin AST ALT Alkaline Phosphatase Creatine Kinase Troponin T < 0.010 Total Protein Albumin Globulin Albumin/Globulin Ratio Orders Category Date Time Status Cardiac Monitoring DIRECTED Care 11/09/19 21:35 Active ED: Orthostatic Vital Signs (E DIRECTED Care 11/09/19 21:36 Active Nursing- Obtain EKG ONCE Care 11/09/19 21:35 Active CHEST-PORTABLE [RAD] Stat Exams 11/09/19 21:[address] ANGIOGRM PULMONARY ARTERIES [CT] Stat Exams 11/09/19 21:40 Taken CBC WITH DIFF [HEME] Stat Lab 11/09/19 21:54 Completed CK PROFILE [SP CHEM] Stat Lab 11/09/19 21:54 Completed COMPREHENSIVE METABOLIC PANEL [CHEM] Stat Lab 11/09/19 21:54 Completed D-DIMER [COAG] Stat Lab 11/09/19 21:54 Completed TROPONIN T Stat Lab 11/09/19 21:54 Completed EKG [EKG] Stat Ther 11/09/19 21:35 Ordered Transfer/Admit Order [TRANSFER] Routine Transfer 11/10/19 00:53 Ordered Result Diagrams: 11/09/19 21:54 11/09/19 21:54 - EKG 1 Time of EKG reading by physician:: 21:44 EKG Read and Signed by:: Dax Perez EKG Interpretation (*Must complete 3 of following elements*): Abnormal (possible left atrial enlargement; inferior age undetermined) Rate: 71 Rhythm: NSR QRS: RBB ST Wave: normal - XRAY 1 XRAY: Bilateral XRAY Study: Chest Impression: See EMR Report (IMPRESSION: Suggestion of mild pulmonary venous congestion. Electronically signed by Evan Townsend 11/09/2019 9:49 PM) - CT/MRI 1 CT Study: Angiogram Impression: See EMR Report (No acute pulmonary artery embolism. No aortic dissection or aneurysm. Chronic interstitial lung disease. No consolidation, plueral effusion or pneumothorax. Sequela of granulomas infection. Bilateral anterior rib fractures and compared to previous exam, appearing subacute suggesting interval trauma or CPR.) - CONSULTS/PCP/HOSPITALIST Notification #1 *Consult/PCP/Hospitalist*: Dr. Murillo Time Discussed: 00:03 Consult Disposition: Admit (accepted pt) Departure - Departure Date of Disposition Decision: 11/10/19 Time of Disposition Decision: 00:03 DIAGNOSIS: Syncope Disposition: ADMITTED INPATIENT 09 Certified Medical Emergency: Emergent Condition: Good Referrals and Follow-Ups: Yana Cantu MD [Primary Care Provider] - - Critical Care Note This patient required my direct & personal management of CC.: No Attestation - Physician/ CLYDE Attestation Patient care was provided by Advanced Practice Provider:: No The physician spent face to face time with patient:: Yes Advanced Practice Provider documentation review:: Supervising physician onsite and consulted in the evaluation and care of this patient. The physician did have a face to face encounter with the patient. This chart was documented by the indicated scribe, (Paula Romeo Scribe) and accurately reflects the services I performed and decisions made by me, Dax Perez MD, as attested by the provider's signature.
--- NOTE | 2019-11-10 03:12 | HISTORY AND PHYSICAL ---
PRIMARY CARE PHYSICIAN: Dr. Doug Cantu. CHIEF COMPLAINT: Passed out. HISTORY OF PRESENTING ILLNESS: A 79-year-old female with a history of hypertension, hyperlipidemia, coronary artery disease, CHF, who had presented to emergency department after she had an episode where she passed out. She does not really recall what happened but states that she somewhat got weak and then she does not remember what happened. She was evaluated in the emergency department. Due to her presenting symptoms, it was thought that we will place her for observation for further evaluation and management. At the time of my examination, patient denied any headache, fever, chills, nausea, vomiting, diarrhea, chest pain, hemoptysis, melena or weight changes, but complained of just not feeling well. PAST MEDICAL HISTORY: Includes hypertension, hyperlipidemia, coronary disease, diabetes mellitus type 2, congestive heart failure, diastolic dysfunction, chronic back pain, right carotid disease. PAST SURGICAL HISTORY: Back surgery, coronary stent, hysterectomy. ALLERGIES: Baclofen and methocarbamol. CURRENT MEDICATIONS: Include acetaminophen 650 mg p.o. q.6 hours, allopurinol 300 mg p.o. daily, aspirin 81 mg p.o. daily, buspirone 15 mg p.o. b.i.d., calcium carbonate 600 mg p.o. daily, Lasix 80 mg p.o. daily, gabapentin 1200 mg p.o. at bedtime, [place] 10 mg p.o. q.6 hours, lovastatin 40 mg p.o. daily, metformin 500 mg p.o. b.i.d., omeprazole 20 mg p.o. daily, Mirapex 0.5 mg p.o. daily, prednisone 20 mg p.o. daily, Brilinta 90 mg p.o. b.i.d., trazodone 150 mg p.o. at bedtime. SOCIAL HISTORY: She is a former smoker. No history of alcohol or illicit drug use. FAMILY HISTORY: Positive for coronary artery disease in father. REVIEW OF SYSTEMS: Fourteen point review of systems as listed in HPI. Other systems negative. PHYSICAL EXAMINATION: GENERAL: Cooperative, friendly female. She is resting more comfortably now. VITAL SIGNS: Temperature 97.7 degrees, pulse 78, respirations 18, blood pressure 108/55. HEENT: Atraumatic, normocephalic. Extraocular movements intact. PERRLA. NECK: No masses. CHEST: Clear to auscultation. CARDIOVASCULAR: Regular rate and rhythm. ABDOMEN: Soft, positive bowel sounds. EXTREMITIES: No edema. NEUROLOGIC: She is awake, alert, oriented x3. GENITOURINARY: No bladder distention. SKIN: Warm. LABORATORIES AND STUDIES: WBCs 5.69, hemoglobin 11.9, hematocrit 39.0, platelets 283,000. Sodium 147, potassium 4.4, chloride 107, CO2 is 26, BUN is 25, creatinine is 1.1, glucose 143. Chest x- ray shows mild pulmonary venous congestion. ASSESSMENT: This is a 79-year-old female with a history of hypertension, hyperlipidemia, coronary artery disease, diabetes mellitus type 2, who had presented to emergency department after she had an episode where she passed out. She was seen in the ED and due to her presenting symptoms, we will place her for observation for further evaluation and management. 1. Syncopal episode. 2. Congestive heart failure, diastolic dysfunction. 3. Diabetes mellitus type 2. 4. Hypertension. PLAN: 1. We will admit patient to medical floor with telemetry. 2. We will check orthostatic blood pressure and pulse. 3. Consult her privacy compliance manager. 4. Continue with gentle diuresis. 5. We will monitor blood glucose and put patient on sliding scale insulin regimen. 6. We will monitor blood pressure. Resume antihypertensive agent. 7. Put patient on DVT prophylaxis with SCDs. 8. We will continue to follow, and reassess and make further recommendation based on patient's clinical course. cc: Chinedu Murillo MD
[2019-11-10] MEDS ORDERED: ZOFRAN IV PRN (04:59)
--- NOTE | 2019-11-10 05:30 | EKG Report ---
Test Performed on : 11/09/2019 9:40:33 PM Test Reason : CP Blood Pressure : / mmHG Vent. Rate : 071 BPM Atrial Rate : 071 BPM P-R Int : 138 ms QRS Dur : 120 ms QT Int : 424 ms P-R-T Axes : 070 -05 042 degrees QTc Int : 460 ms Normal sinus rhythm. Possible Left atrial enlargement Right bundle branch block Inferior infarct (cited on or before 14-OCT-2019) Abnormal ECG When compared with ECG of 09-NOV-2019 21:37, (Unconfirmed) Significant changes have occurred Unconfirmed Result
--- NOTE | 2019-11-10 07:07 | Diag Imaging Result Doc PS360 ---
EXAM: CT ANGIOGRM PULMONARY ARTERIES 11/09/2019 HISTORY: syncope, elev dimer TECHNIQUE: This exam was performed using automated exposure control, adjustment of mA or kV according to patient size, and/or use of iterative reconstruction technique. COMMENT: 3-D MIPS were performed. The current study is compared with the previous noncontrast examination of 10/12/2019. There are no filling defects in the pulmonary arteries. There are calcifications present throughout the thoracic aorta and extensively in the coronary arteries. There is no evidence of aortic aneurysm or dissection. There are no abnormal fluid collections. There is an ill-defined lucency present in the lateral right hepatic lobe which was partially visible on the previous examination. This measures almost 18 mm in anterior posterior dimension. It has an internal CT density of only 13 Hounsfield units and may be cystic in nature. There are some granulomata present in the liver and spleen. There is severe degenerative disc disease at L1-2. There are healing fractures of the anterior right second third, fourth, fifth, sixth, and seventh ribs. On the left there are healing fractures of the anterior second, third, fourth, fifth, and possibly sixth ribs. Compared to the previous examination the degree of callus formation and displacement of some of the fractures is more conspicuous. There is emphysematous change present particularly in the upper lobes. Some patchy atelectasis is present particularly in the posterior costophrenic sulcus of the right lower lobe. This has generally improved since the previous examination. The pleural fluid collections which were present previously have resolved. IMPRESSION: 1. Improved bibasilar atelectasis, resolution of bilateral pleural effusions. 2. Healing multiple anterior rib fractures bilaterally. These are more conspicuous than on the previous study. 3. COPD. 4. Nonspecific low-density lesion in the right hepatic lobe, possibly a cyst. Comparison with more remote previous CT examinations is recommended if available. Further evaluation with ultrasound otherwise is recommended. Electronically signed by Nader Martinez 11/10/2019 7:04 AM
[2019-11-10] MEDS ORDERED: NORCO-10 PO PRN (07:56)
[2019-11-10] MEDS ORDERED: TYLENOL PO PRN (07:56)
[2019-11-10] MEDS ORDERED: VITAMIN D PO SCH (08:00)
[2019-11-10] MEDS ORDERED: MAG-OX PO SCH (09:00)
[2019-11-10] MEDS ORDERED: VITAMIN B-12 PO SCH ×2 (09:00→15:42)
[2019-11-10] MEDS ORDERED: ZYLOPRIM PO SCH (09:00)
[2019-11-10] MEDS ORDERED: CALTRATE 600 PO SCH (09:00)
[2019-11-10] MEDS ORDERED: KLOR-CON PO SCH (09:00)
[2019-11-10] MEDS ORDERED: OCUVITE LUTEIN & ZEAXANTHIN PO SCH (09:00)
[2019-11-10] MEDS ORDERED: TOPROL XL PO SCH (09:00)
[2019-11-10] MEDS ORDERED: ASPIRIN PO SCH (09:00)
[2019-11-10] MEDS ORDERED: BIOTIN PO SCH (09:00)
[2019-11-10] MEDS ORDERED: VICON-C PO SCH (09:00)
[2019-11-10] MEDS ORDERED: MIRALAX PO SCH (09:00)
[2019-11-10] MEDS ORDERED: CENTRUM SILVER PO SCH (09:00)
[2019-11-10] MEDS ORDERED: MIRAPEX PO SCH (09:00)
[2019-11-10] MEDS ORDERED: MEVACOR PO SCH (09:00)
[2019-11-10] MEDS: LASIX IV SCH ×3 (09:30→23:10)
[2019-11-10] MEDS: BRILINTA PO SCH ×2 (10:15→23:06)
[2019-11-10] MEDS: GLUCOPHAGE PO SCH ×2 (10:15→17:50)
[2019-11-10] MEDS: BUSPAR PO SCH ×2 (10:16→23:04)
[2019-11-10] MEDS: PRILOSEC PO SCH ×2 (10:17→23:06)
--- NOTE | 2019-11-10 18:42 | PROGRESS NOTE ---
DATE: 11/10/2019 Mrs. Mendes was admitted last night with a syncopal episode. She had previously been hospitalized at [facility] for evaluation of syncope. She underwent an exhaustive cardiac workup. She had an echocardiogram which demonstrated grade 1 diastolic dysfunction. She had normal ejection fraction of 70%. There was no aortic stenosis. A Persantine Myoview GXT demonstrated no reversible ischemia. She did have a carotid ultrasound which demonstrated a critical lesion on the left. She is scheduled to see Dr. Espinoza for surgical evaluation next week. She has remained in normal sinus rhythm throughout her hospitalization to this point in time, cardiac enzymes are negative. She does have a history of congestive heart failure secondary to diastolic dysfunction. She was with complaint of mild shortness of breath. She denied any PND, orthopnea or increasing peripheral edema. Her chest x-ray showed mild pulmonary congestion. Vital signs: 98.2, pulse 77, respirations 20, BP 100/55. CV: Regular rate and rhythm. Lungs: Faint crackles in the bases bilaterally. Abdomen: Soft, nontender with active bowel sounds. ASSESSMENT AND PLAN: 1. Syncope. I suspect there is some degree of vertebrobasilar insufficiency. She has an appointment to see Dr. Espinoza next week for surgical evaluation of the carotid blockage. There is the possibility of arrhythmias. We can arrange for an event monitor as an outpatient. 2. Acute on chronic congestive heart failure secondary to diastolic dysfunction. We will continue a salt and fluid restricted diet and I will increase the Lasix to 40 mg IV q.12 hours. We will monitor her I's and O's. cc: Armen Cantu MD
[2019-11-10] MEDS ORDERED: DESYREL PO SCH (21:00)
[2019-11-10] MEDS ORDERED: NEURONTIN PO SCH (21:00)
[2019-11-10] MEDS: SYMBICORT 160/4.5 MICROGM INHALER INH SCH (23:51)
[2019-11-11 07:20] LABS: BASO# 0.02 X1000 (0.0-0.2); BASO% 0.4 % (0.0-0.8); EOS# 0.26 X1000 (0.0-0.7); EOS% 5.3 % (0.0-10.0); HEMATOCRIT 37.3 % (37.0-47.0); HEMOGLOBIN 11.2 g/dL (12.0-16.0); IMM GRAN# 0.03 X1000 (0.0-0.04); IMM GRAN% 0.6 % (0.0-0.5); LYMPH# 1.04 X1000 (1.2-3.4); MCH 28.8 PG (27-31); MCV 95.9 FL (81-99); MONO# 0.45 X1000 (0.11-0.59); MONO% 9.1 % (1.7-9.3); MPV 9.8 FL (7.4-10.4); NEUT# 3.15 X1000 (1.4-6.5); NEUT% 63.6 % (42.2-75.2); PLT 279 X1000 (130-400); RBC 3.89 XMIL (4.2-5.4); RDW 16.2 % (11.5-14.5); WBC 4.95 X1000 (4.8-10.8)
[2019-11-11 07:45] VITALS: BP 110/83
[2019-11-11 07:51] LABS: AGAP 11; BUN 21 mg/dL (8-22); CALCIUM 8.8 mg/dL (8.8-10.2); CHLORIDE 99 mmol/L (98-107); COSMO 278; CREATININE 0.8 mg/dL (0.5-0.9); ESTIMATED GFR > 60; GLUCOSE 122 mg/dL (70-104); POTASSIUM 3.8 mmol/L (3.5-5.1); SODIUM 137 mmol/L (136-145); TCO2 27 mmol/L (25-35)
[2019-11-11] MEDS: SYMBICORT 160/4.5 MICROGM INHALER INH SCH (08:36)
--- NOTE | 2019-11-11 09:11 | PROGRESS NOTE ---
DATE: 11/11/2019 DISCHARGE DIAGNOSES: 1. Syncopal episode. 2. 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 3. Ischemic heart disease. 4. Chronic obstructive pulmonary disease. 5. Chronic respiratory failure with hypoxia, on home oxygen at 2 L per nasal cannula continuously. 6. Chronic congestive heart failure secondary to diastolic dysfunction. 7. Chronic low back pain secondary to lumbar spinal stenosis. 8. Restless legs syndrome. 9. Mixed hyperlipidemia. 10. Anxiety disorder. DISCHARGE INSTRUCTIONS: 1. The patient will return to clinic in 1 week to see me, Dr. Doug Cantu, in anticipation of a transition of care visit. 2. Activity as tolerated. 3. 1800 calorie ADA diet. MEDICATIONS: Allopurinol 300 mg daily, aspirin 81 mg daily, Symbicort 160/4.5 mcg 2 puffs b.i.d., buspirone 15 mg b.i.d., vitamin D 1000 units daily, vitamin B12 2500 mcg daily, Lasix 80 mg daily, Neurontin 1200 mg at bedtime, Lortab 10 one q.6 hours p.r.n. pain, lovastatin 40 mg at bedtime, magnesium oxide 400 mg b.i.d., metoprolol 25 mg daily, omeprazole 20 mg b.i.d., KCl 10 mEq daily, Mirapex 0.5 mg daily, Brilinta 90 mg b.i.d., trazodone 150 mg at bedtime p.r.n. insomnia. PHYSICAL EXAMINATION: General: This is an elderly, frail 79-year-old lady in no apparent distress. Vital signs: She is afebrile, pulse is 74, respirations 16, blood pressure 117/54. Cardiovascular: Regular rate and rhythm. Lungs: Clear. Abdomen: soft, nontender with active bowel sounds. HISTORY AND HOSPITAL COURSE: Ms. Mendes was admitted to [facility] with a syncopal episode. She has undergone a previous extensive cardiovascular workup. Her most recent echocardiogram demonstrated grade 1 diastolic dysfunction with normal ejection fraction. She had no significant valvular issues such as aortic stenosis. A [employer] GXT demonstrated no reversible ischemia. She remained in normal sinus rhythm. She ruled out for myocardial ischemia by serial enzymes. She does have a critical lesion of the right internal carotid artery. I suspect that she has some degree of vertebrobasilar insufficiency which is contributing to the syncopal episodes. She has an appointment to see Dr. Espinoza in [place], [place], on 11/13/2019 for surgical evaluation of the aforementioned carotid stenosis. Certainly with her history of ischemic heart disease, she is at risk for arrhythmias. I will arrange for an event monitor as an outpatient. She does have a history of chronic respiratory failure with hypoxia secondary to COPD as well as chronic congestive heart failure secondary to diastolic dysfunction. She denied any PND or orthopnea but did have mild dyspnea with exertion. She had no significant peripheral edema. Chest x-ray showed minimal interstitial edema. Her proBNP was negative. I increased the Lasix to 40 mg IV q.12 hours with good diuresis. She reported that she was breathing comfortably this morning. O2 saturations were in the range of 98 to 100 percent on 2 L of O2. She does have a longstanding history of type 2 [id number] diabetes mellitus. Blood sugars remained stable. Blood sugars this morning were 122. We will continue her on an 1800 calorie ADA diet as well as her regular home dosage of metformin. Having reached maximum hospital benefit, the patient was discharged in stable condition. cc: Armen Cantu MD [place]
== END 2019-11-11 09:22 | disposition home or self-care (01) ==
LOC: SUPCPDRO → EDIPHOLD 21:03 → ED 21:03 → SUATTDRO 11-10 04:14 → 4N 11-10 07:27
PROVIDERS: ADMIT Internal Medicine; ATTEND Internal Medicine

== ENCOUNTER 2019-12-10 06:13 | Inpatient (IN) ==
[2019-12-10] MEDS ORDERED: LASIX IV ONE (06:26)
[2019-12-10] MEDS ORDERED: NITROGLYCERIN TOP ONE (06:26)
[2019-12-10] MEDS ORDERED: LASIX ONE (06:31)
[2019-12-10] MEDS ORDERED: NITROGLYCERIN ONE (06:31)
--- NOTE | 2019-12-10 06:32 | PROVIDER DOCUMENTATION ---
HPI-Respiratory General - General Chief Complaint: Shortness of Breath Stated Complaint: sob Time Seen by Provider: 12/10/19 06:30 Source: patient, family, EMS Allergies/Adverse Reactions: Patient Allergies Allergy/AdvReac Type Severity Reaction Status Date / Time baclofen Allergy HEADACHE Verified 12/10/19 07:25 methocarbamol Allergy NAUSEA/VOMI Verified 12/10/19 07:25 TING Home Medications: Home Medication List Medication Instructions Recorded Confirmed Last Taken Type Allopurinol [Zyloprim] 300 mg PO DAILY 08/21/19 12/10/19 12/09/19 History Aspirin 81 mg PO DAILY 08/21/19 12/10/19 12/09/19 History Biotin 1,000 mcg PO DAILY 08/21/19 12/10/19 12/09/19 History C,E,Zinc,Copper 11/Aesug8g/Lut 1 cap PO DAILY 08/21/19 12/10/19 12/09/19 History [Ocuvite Adult 50 Plus Softgel] Calcium Carbonate [Calcium] 600 mg PO DAILY 08/21/19 12/10/19 12/09/19 History Cyanocobalamin S.l. [Vitamin B-12] 2,500 mcg PO DAILY 08/21/19 12/10/19 12/09/19 History Gabapentin 1,200 mg PO QHS 08/21/19 12/10/19 12/09/19 History Lovastatin 40 mg PO DAILY 08/21/19 12/10/19 12/09/19 History Multivitamins/Minerals [Centrum 1 tab PO DAILY 08/21/19 12/10/19 12/09/19 History Silver] Polyethylene Glycol 3350 [Miralax] 1 dose PO DAILY 08/21/19 12/10/19 12/09/19 History Potassium Chloride 10 meq PO DAILY 08/21/19 12/10/19 12/09/19 History Pramipexole [Mirapex] 0.5 mg PO DAILY 08/21/19 12/10/19 12/09/19 History Trazodone HCl 150 mg PO QHS 08/21/19 12/10/19 12/09/19 History Vitamin B Complex [B Complex] 1 tab PO DAILY 08/21/19 12/10/19 12/09/19 History Buspirone HCl 15 mg PO BID 08/22/19 12/10/19 12/09/19 History Cholecalciferol (Vit D3) [Vitamin 1,000 unit PO MoFr cap 08/23/19 12/10/19 12/09/19 Rx D] Magnesium Oxide [Mag-Ox] 400 mg PO DAILY tab 08/23/19 12/10/19 12/09/19 Rx Furosemide [Lasix] 80 mg PO DAILY 10/12/19 12/10/19 12/09/19 History Ticagrelor [Brilinta] 90 mg PO BID 10/12/19 12/10/19 12/09/19 History Acetaminophen [Tylenol] 650 mg PO Q6H PRN PRN tab 10/17/19 12/10/19 12/09/19 Rx Budesonide/Formoterol Inhaler 2 puff INH RTBID #1 inhaler 10/17/19 12/10/19 12/09/19 Rx [Symbicort 160/4.5 Microgm Inhaler] Hydrocodone/APAP 10 mg/325 mg 1 ea PO Q6H PRN PRN tab 10/17/19 12/10/1911/27 Rx [Brandon-10] Metformin [Glucophage] 500 mg PO BID CC tab 10/17/19 12/10/19 12/09/19 Rx Omeprazole [Prilosec] 20 mg PO BID cap 10/17/19 12/10/19 12/09/19 Rx Metoprolol Succinate E.r. [Toprol 25 mg PO DAILY tab 11/11/19 12/10/19 12/09/19 Rx Xl] - History of Present Illness-Resp Nature of Presenting Problem: Patient is a 79 year old white female with history of CHF,COPD,chronic back pain, and CAD who presents by [facility] with worsening SOB,diaphoresis, and orthopnea since 5am this morning. Denies chest pain, fever, productive cough. patient is currently taking Lasix. Here with . Review of Systems - Adult - REVIEW OF SYSTEMS - ADULT ROS:: limited per condition Constitutional: reports: no symptoms reported Eyes: reports: no symptoms reported Ears, Nose, Mouth & Throat: reports: no symptoms reported Cardiovascular: denies: chest pain Respiratory: reports: see HPI, shortness of breath Gastrointestinal: reports: no symptoms reported Genitourinary: reports: no symptoms reported Musculoskeletal: reports: no symptoms reported Integumentary: reports: no symptoms reported Neurological: reports: no symptoms reported Psychiatric: reports: no symptoms reported Endocrine: reports: no symptoms reported Hematologic/Lymphatic: reports: no symptoms reported Allergic/Immunologic: reports: no symptoms reported All Other Systems: Reviewed and Negative Past History - Adult - PAST MEDICAL HISTORY-ADULT Review of Records: reports: Old Records Reviewed, Nursing Assessment Review, Medications Reviewed, Social history reviewed & non-contributory. Cardiovascular: reports: cardiac disease, CAD, CHF, hyperlipidemia, GA Respiratory: reports: denies history Gastrointestinal: reports: denies history Genitourinary: reports: denies history Musculoskeletal: reports: chronic pain (back, has had back surgeries) Neurological: reports: denies history Psychiatric: reports: denies history Endocrine/Immune: reports: Diabetes - PRIOR SURGERIES/PROCEDURES Surgical/Procedure History: reports: other (stent placement, back surgeries) - FAMILY HISTORY Family History: reviewed, not pertinent Physical Exam-General - CONSTITUTIONAL General Appearance: alert, severe distress, obese, other (diaphoretic, orthopneic) - EYES Eyes: other (clear) - HEAD, EARS, NOSE, MOUTH & THROAT HENMT: moist mucous membranes - NECK Neck: supple - RESPIRATORY Respiratory: decreased breath sounds, rales, rhonchi - CARDIOVASCULAR Cardiovascular: tachycardia - GASTROINTESTINAL (ABDOMEN) Abdominal Exam: non tender, soft - LYMPHATIC Lymphatic: no adenopathy - MUSCULOSKELETAL Back Exam: no CVA tenderness Extremity: non-tender - SKIN Integumentary: normal color, normal turgor - PSYCHIATRIC Psych/Mental Status: anxious Progress - PLAN OF CARE/RESULTS Progress/Plan/Lab Results: Vital Signs - 8 hr 12/10/19 06:20 Pulse Rate 131 H Respiratory Rate 43 H O2 Sat by Pulse Oximetry 98 Laboratory Results - last 24 hr 12/10/19 12/10/19 12/10/19 07:07 07:07 07:07 WBC 16.71 H RBC 4.06 L Hgb 11.8 L Hct 37.9 MCV 93.3 MCH 29.1 MCHC 31.1 L RDW Std Deviation 16.0 H Plt Count 369 MPV 10.2 Immature Gran % (Auto) 0.3 Neut % (Auto) 86.1 H Lymph % (Auto) 9.0 L [place] % (Auto) 3.1 Eos % (Auto) 1.3 Baso % (Auto) 0.2 Immature Gran # (Auto) 0.05 H Neut # (Auto) 14.38 H Lymph # (Auto) 1.51 [place] # (Auto) 0.51 Eos # (Auto) 0.22 Baso # (Auto) 0.04 Sodium Potassium Chloride Carbon Dioxide Anion Gap BUN Creatinine Estimated GFR/1.73 m2 BUN/Creatinine Ratio Glucose Calculated Osmolality Calcium Magnesium 2.0 Total Bilirubin AST ALT Alkaline Phosphatase Creatine Kinase 77 Troponin T High Sens Total Protein Albumin Globulin Albumin/Globulin Ratio Urine Source Urine Color Urine Turbidity Urine pH Ur Specific [place] Urine Protein Ur Glucose (Stick) Ur Ketones (Stick) Urine Blood Urine Nitrite Urine Bilirubin Urobilinogen Dipstick Urine Leukocytes Urine WBC (Auto) Urine RBC (Auto) U Epithel Cells (Auto) Urine Bacteria (Auto) 12/10/19 12/10/19 12/10/19 07:07 07:07 07:46 WBC RBC Hgb Hct MCV MCH MCHC RDW Std Deviation Plt Count MPV Immature Gran % (Auto) Neut % (Auto) Lymph % (Auto) [place] % (Auto) Eos % (Auto) Baso % (Auto) Immature Gran # (Auto) Neut # (Auto) Lymph # (Auto) [place] # (Auto) Eos # (Auto) Baso # (Auto) Sodium 135 L Potassium 4.1 Chloride 98 Carbon Dioxide 22 L Anion Gap 15 BUN 22 Creatinine 0.9 Estimated GFR/1.73 m2 > 60 BUN/Creatinine Ratio 24 Glucose 277 H Calculated Osmolality 283 Calcium 9.1 Magnesium Total Bilirubin 0.23 AST 24 ALT 23 Alkaline Phosphatase 117 H Creatine Kinase Troponin T High Sens 27 H Total Protein 6.1 L Albumin 3.8 Globulin 2.3 Albumin/Globulin Ratio 1.7 Urine Source CATH Urine Color STRAW Urine Turbidity CLEAR Urine pH 5.0 Ur Specific [place] 1.008 Urine Protein NEGATIVE Ur Glucose (Stick) NEGATIVE Ur Ketones (Stick) NEGATIVE Urine Blood NEGATIVE Urine Nitrite NEGATIVE Urine Bilirubin NEGATIVE Urobilinogen Dipstick NORMAL Urine Leukocytes NEGATIVE Urine WBC (Auto) <10 Urine RBC (Auto) <10 U Epithel Cells (Auto) <10 Urine Bacteria (Auto) 3+ Orders Category Date Time Status Cardiac Monitoring DIRECTED Care 12/10/19 06:30 Active Cardiac Monitoring DIRECTED Care 12/10/19 09:56 Active FSBS/Accucheck Result NOW Care 12/10/19 06:25 Active Nelson Cath Insertion ORDERED Care 12/10/19 06:55 Active Misc. NRSG Communication Order DIRECTED Care 12/10/19 09:54 Active Saline Loc NOW Care 12/10/19 06:29 Active CHEST-PORTABLE [RAD] Stat Exams 12/10/19 06:29 Completed BLOOD CULTURE [BLDCUL] Stat Lab 12/10/19 07:07 Received CBC WITH ELECTRONIC DIFF [HEME] Stat Lab 12/10/19 07:07 Completed CK PROFILE [SP CHEM] Stat Lab 12/10/19 07:07 Completed CK PROFILE [SP CHEM] Stat Lab 12/10/19 09:56 Uncollected CMP [COMPREHENSIVE METABOLIC PANEL] [CHEM] Stat Lab 12/10/19 07:07 Completed LACTATE, PLASMA [CHEM] Q3H Lab 12/10/19 10:00 Uncollected LACTATE, PLASMA [CHEM] Q3H Lab 12/10/19 13:00 Uncollected LACTATE, PLASMA [CHEM] Q3H Lab 12/10/19 16:00 Uncollected MAGNESIUM [CHEM] Stat Lab 12/10/19 07:07 Completed PRO B-NATRIURETIC PEPTIDE Stat Lab 12/10/19 09:56 Uncollected PROTIME WITH INR [COAG] Stat Lab 12/10/19 09:56 Uncollected PTT [COAG] Stat Lab 12/10/19 09:56 Uncollected SPUTUM CULTURE WITH GRAM STAIN [RM] Stat Lab 12/10/19 09:48 Uncollected TROPONIN T HIGH SENSITIVITY Stat Lab 12/10/19 07:07 Completed URINALYSIS W/POSS RFLX CULT [URINALYSIS] Stat Lab 12/10/19 07:46 Completed URINE CULTURE [RM] Routine Lab 12/10/19 08:43 Ordered 0.9% Sodium Chloride Inj [Ns] 1,000 ml Med 12/10/19 09:48 Active IV 999 mls/hr 0.9% Sodium Chloride Inj [Ns] 1,000 ml Med 12/10/19 09:48 Active IV 999 mls/hr Albuterol 2.5MG/Ipratrop 0.5MG [Duoneb (A & A)] Med 12/10/19 09:48 Discontinued 3 ml INH NOW ONE Furosemide [Lasix] Med 12/10/19 06:31 Discontinued 100 mg .ROUTE .STK-MED ONE Furosemide [Lasix] Med 12/10/19 06:26 Discontinued 60 mg IV NOW ONE Nitroglycerin Med 12/10/19 06:31 Discontinued 1 inch .ROUTE .STK-MED ONE Nitroglycerin Med 12/10/19 06:26 Discontinued 1 inch TOP NOW ONE Piperacillin/Tazobactam [Zosyn] 4.5 gm Med 12/10/19 09:48 Active 0.9% Sodium Chloride Inj [Ns] 100 ml IV NOW Vancomycin 1 gm/Ns Med 12/10/19 09:48 Active 1 gm in 250 ml IV NOW Aerosol Treatments Routine Oth 12/10/19 09:48 Active Aerosol Treatments Stat Oth 12/10/19 09:48 Active BIPAP Stat Oth 12/10/19 06:26 Active Pulse Oximetry Stat Oth 12/10/19 06:30 Completed EKG [EKG] Stat Ther 12/10/19 06:11 Ordered EKG [EKG] Stat Ther 12/10/19 06:38 Draft Result Diagrams: 12/10/19 07:07 12/10/19 07:07 - REASSESSMENT Reassessment #1 Time Reassessed: 06:35 Status: improving Reassessment Comment: diaphoresis,heart rate,BP, and breathing is improved after BIPAP Reassessment #2 Time Reassessed: 09:49 Status: improving (Seen and examined by me. Case discussed with Dr. Booker at shift change. He assumed patient was volume overloaded with CHF, however, it now appears she may have sepsis and RLL pneumonia. Will give IVF bolus and treat with HCAP antbiotics as she was recently in hospital for CEA surgery at [place]. Will need levaphed if pressure doesn't come up with fluids. Patient currently hypotensive, will d/c nitropaste.) Reassessment Comment: I also noted patient on BiPap without ABG done, will order one and adjust a - EKG 1 Time of EKG reading by physician:: 06:48 EKG Read and Signed by:: Robert Booker Rate: 94 Rhythm: NSR ST Wave: non-specific ST changes - XRAY 1 XRAY Study: Chest Impression: Abnormal, See EMR Report ( EXAM: CHEST-PORTABLE INDICATION: sob TECHNIQUE: One view COMPARISON: 11/09/2019 FINDINGS: There has been interval development of a dense airspace infiltrate at the right lower lung zone suggesting pneumonia. There also appears to be a background of pulmonary venous congestion and interstitial edema. No other new consolidation is identified. Cardiac silhouette is stable. IMPRESSION: Interval development of dense infiltrate at the right lower lung zone suggesting pneumonia. Electronically signed by Evan Townsend 12/10/2019 8:03 AM 12/10/19 0803 Interpreting Physician: Evan Townsend MD Dictated Date/Time: 12/10/19 0802 cc: Robert Booker MD; Yana Cantu MD) XRAY Interpretation: CHF - CONSULTS/PCP/HOSPITALIST Notification #1 *Consult/PCP/Hospitalist*: Wierich Time Discussed: 10:00 Consult Disposition: Will see in ED, Admit - CHANGE OF SHIFT REPORT (ED Provider) 1 Report Given and Care Transferred to:: Dr. Zhao Time of Transfer: 07:00 Items Pending: Labs, XRAY Results Departure - Departure Date of Disposition Decision: 12/10/19 Time of Disposition Decision: 10:00 DIAGNOSIS: Septic shock, Healthcare associated bacterial pneumonia Right lower lobe pneumonia Qualifiers: Pneumonia type: due to unspecified organism Qualified Code(s): J18.1 - Lobar pneumonia, unspecified organism Disposition: ADMITTED INPATIENT 09 Certified Medical Emergency: Emergent Condition: Stable Referrals and Follow-Ups: Yana Cantu MD [Primary Care Provider] - - Critical Care Note This patient required my direct & personal management of CC.: Yes Total Time (mins): 45 Critical Care Statement: This patient required my direct personal management to treat or rule out processes, the absence of which, could potentiallly result in sudden, clinically significant life or limb threatening deterioration. Attestation - Physician/ CLYDE Attestation Patient care was provided by Advanced Practice Provider:: No The physician spent face to face time with patient:: Yes Advanced Practice Provider documentation review:: Supervising physician onsite and consulted in the evaluation and care of this patient. The physician did have a face to face encounter with the patient.
[2019-12-10 07:36] LABS: BASO# 0.04 X1000 (0.0-0.2); BASO% 0.2 % (0.0-0.8); EOS# 0.22 X1000 (0.0-0.7); EOS% 1.3 % (0.0-10.0); HEMATOCRIT 37.9 % (37.0-47.0); HEMOGLOBIN 11.8 g/dL (12.0-16.0); IMM GRAN# 0.05 X1000 (0.0-0.04); IMM GRAN% 0.3 % (0.0-0.5); LYMPH# 1.51 X1000 (1.2-3.4); MCH 29.1 PG (27-31); MCHC 31.1 g/dL (33-37); MCV 93.3 FL (81-99); MONO# 0.51 X1000 (0.11-0.59); MONO% 3.1 % (1.7-9.3); MPV 10.2 FL (7.4-10.4); NEUT# 14.38 X1000 (1.4-6.5); NEUT% 86.1 % (42.2-75.2); PLT 369 X1000 (130-400); RBC 4.06 XMIL (4.2-5.4); WBC 16.71 X1000 (4.8-10.8)
--- NOTE | 2019-12-10 08:06 | Diag Imaging Result Doc PS360 ---
EXAM: CHEST-PORTABLE INDICATION: sob TECHNIQUE: One view COMPARISON: 11/09/2019 FINDINGS: There has been interval development of a dense airspace infiltrate at the right lower lung zone suggesting pneumonia. There also appears to be a background of pulmonary venous congestion and interstitial edema. No other new consolidation is identified. Cardiac silhouette is stable. IMPRESSION: Interval development of dense infiltrate at the right lower lung zone suggesting pneumonia. Electronically signed by Evan Townsend 12/10/2019 8:03 AM
[2019-12-10 08:23] LABS: URINE SOURCE CATH
[2019-12-10 08:32] LABS: AGAP 15; ALB/GLOB RATIO 1.7; ALBUMIN 3.8 g/dL (3.5-5.0); ALKALINE PHOSPHATASE 117 U/L (32-104); BUN 22 mg/dL (8-22); CALCIUM 9.1 mg/dL (8.8-10.2); CHLORIDE 98 mmol/L (98-107); COSMO 283; CREATININE 0.9 mg/dL (0.5-0.9); ESTIMATED GFR > 60; GLUCOSE 277 mg/dL (70-104); GOT 24 U/L (10-30); GPT 23 U/L (10-36); POTASSIUM 4.1 mmol/L (3.5-5.1); SODIUM 135 mmol/L (136-145); TCO2 22 mmol/L (25-35); TOTAL BILIRUBIN 0.23 mg/dL (0.20-1.00); TOTAL PROTEIN 6.1 g/dL (6.3-8.3)
[2019-12-10 08:37] LABS: BILIRUBIN URINE NEGATIVE (NEGATIVE); BLOOD URINE NEGATIVE (NEGATIVE); COLOR STRAW; GLUCOSE URINE NEGATIVE (NEGATIVE); KETONE URINE NEGATIVE (NEGATIVE); LEUKOCYTES URINE NEGATIVE (NEGATIVE); NITRITE URINE NEGATIVE (NEGATIVE); PROTEIN URINE NEGATIVE (NEGATIVE); SP GRAVITY URINE 1.008; TURBIDITY URINE CLEAR (CLEAR); UROBILINOGEN URINE NORMAL (NORMAL)
[2019-12-10 08:39] LABS: UR EPITHELIAL CELLS <10 /HPF (<10); URINE BACTERIA 3+ /HPF; URINE RBC <10 /HPF (<10); URINE WBC <10 /HPF (<10)
--- NOTE | 2019-12-10 09:32 | EKG Report ---
Test Performed on : 12/10/2019 06:47:56 AM Test Reason : pain Blood Pressure : / mmHG Vent. Rate : 094 BPM Atrial Rate : 094 BPM P-R Int : 142 ms QRS Dur : 118 ms QT Int : 384 ms P-R-T Axes : 068 045 052 degrees QTc Int : 480 ms Normal sinus rhythm. Possible Left atrial enlargement Low voltage QRS Incomplete right bundle branch block Nonspecific ST abnormality Abnormal ECG When compared with ECG of 09-NOV-2019 21:40, (Unconfirmed) Criteria for Inferior infarct are no longer present ST elevation now present in Inferior leads Unconfirmed Result
[2019-12-10] MEDS ORDERED: VANCOMYCIN 1 GM/NS 1 GM/250 ML IVPB IV ONE (09:48)
[2019-12-10] MEDS ORDERED: DUONEB (A & A) INH ONE (09:48)
[2019-12-10] MEDS ORDERED: NS 1,000 ML IV ONE ×2 (09:48)
[2019-12-10] MEDS ORDERED: ZOSYN 4.5 GM in NS 100 ML IV ONE (09:48)
[2019-12-10] MEDS ORDERED: ZOFRAN IV PRN (10:01)
[2019-12-10] MEDS ORDERED: TYLENOL PO PRN ×2 (10:01→18:18)
[2019-12-10 10:45] LABS: INR 0.9; PROTIME 12.2 Seconds (11.0-16.0)
[2019-12-10 10:46] LABS: PTT 25.8 Seconds (22.3-41.8)
[2019-12-10] MEDS: DUONEB (A & A) INH SCH ×4 (11:04→23:35)
[2019-12-10 11:21] LABS: ALLEN TEST YES; BE 2.1 mmoll (-3.0-3.0); BLOOD TYPE ARTERIAL; HCO3-(ACT) 26.6 mmoll (20.0-26.0); METHB 0.9 % (0.0-1.5); MODALITY BI PAP; O2(CT) 15.7 mL/dL (15.0-23.0); O2HB 97.1 % (95.0-99.0); PCO2(98.6) 47 mmHg (35-45); PO2(98.6) 230 mmHg (60-100); SAMPLE BLOOD; SRATE 14 BPM; THB 11.1 g/dL (11.5-17.4); pH(98.6) 7.38 (7.35-7.45)
--- NOTE | 2019-12-10 12:57 | HISTORY AND PHYSICAL ---
CHIEF COMPLAINT: Shortness of breath. HISTORY OF PRESENT ILLNESS: This is a 79-year-old, white female with extensive medical history including COPD with frequent exacerbation, diastolic heart failure, ischemic heart disease, diabetes, hypertension, and chronic pain management issues, presented to the emergency room with shortness of breath this morning. The patient had undergone a right carotid endarterectomy at [facility] in [place] approximately 2 weeks ago. Her was recently discharged from the hospital due to a case of pneumonia. She also had a granddaughter with the flu, but states that she did not have any direct exposure to her illness. The patient was doing fine postoperatively until she became short of breath this morning. When I asked her about any incidence of choking and/or swallowing difficulty, she stated that she "had some reflux last night." When I asked her if she vomited, she said that she did. She notes that she did not have any symptoms of shortness of breath until after she had vomited. She denied any hard shaking chills or rigors. She did not have any fever at home. The patient had a workup in the emergency room, which was initially undertaken by Dr. Booker. He felt that she had more congestive failure symptoms and gave her some Lasix, put her on BiPAP and insert a Nelson catheter. When Dr. Rosas took over the case in the plastic duplicator, the reading from the chest x-ray said right lower lobe pneumonia, and due to high white cell count, he felt that she most likely had pneumonia. Therefore, he gave her vancomycin and Zosyn with breathing treatments, BiPAP and scheduled and called me for admission. PAST MEDICAL HISTORY: 1. Hypertension. 2. Ischemic heart disease with a history of 4 stents placed in the past. 3. Hyperlipidemia. 4. Diabetes type 2, not requiring insulin. 5. Chronic diastolic congestive heart failure, well compensated. 6. Chronic back pain, including 4 previous back surgeries. The patient takes Dowling several times a day to maintain control of this. 7. Peripheral artery disease, including right carotid endarterectomy 2 weeks ago. 8. History of cervical cancer in the distant past. PAST SURGICAL HISTORY: 1. Back surgery x4, procedure unknown. 2. Coronary stent x4. 3. Hysterectomy. ALLERGIES: Baclofen and methocarbamol, but she is tolerant to all antibiotics. SOCIAL HISTORY: The patient is and lives with her . She is a former smoker who quit in October 2019. She does not use any alcohol. As stated above, she is a chronic pain patient. FAMILY HISTORY: Significant for coronary artery disease in first-degree relatives. REVIEW OF SYSTEMS: The patient states that her weight has been stable. She has not had any difficulty with eating or drinking or nutrition. She felt that she was recovering well from her surgery up until this morning. She denies any symptoms consistent with orthopnea or PND. She does not have any gross worsening of exertional dyspnea. She clearly has COPD and had exacerbations in the past, but claims to not have had any other respiratory symptoms prior to this morning. She denied any chest pain or palpitations. As stated in the history of present illness, she had an episode last night where she did vomit after having reflux; is not clear whether this is a recurrent pattern with her. Her bowels had otherwise been working normally. She had no genitourinary complaints. She states that since she has been taking Lasix regularly that her legs have not swollen significantly. She states no recent weight gain due to fluid balance difficulties. She has had no headache or visual changes or other focal weakness. She has no other musculoskeletal complaints other than generalized arthritis associated with age. PHYSICAL EXAMINATION: I do not have a temperature. Pulse rate is 72, respirations are 20. The patient is on BiPAP and well saturated. Blood pressure is 101/51. GENERAL: In general, she is a well-developed, obese, white female who is in no acute distress. She is reasonably tolerant of her BiPAP and is able to speak in full sentences. HEENT: The sclerae are anicteric. NECK: There are some Steri-Strips on the right side and swelling over the carotid artery consistent with a well healing a incision. No evidence of infection. LUNGS: Right lower lobe wheezes and slight crackles. She generally has clear air movement in the other areas. CARDIOVASCULAR: Regular. ABDOMEN: Protuberant. Bowel sounds are present. EXTREMITIES: I do not see any peripheral edema about the ankles or in the pretibial regions. NEUROLOGIC: Cranial nerves appear to be intact. Patient moves freely in the bed. Individual motor skills were not tested. LABORATORY: White cell count 16.7, hemoglobin 11.8, sodium 135, BUN 22, creatinine 0.9. Blood sugar was 277, alkaline phosphatase 117. ProBNP was 1073. Urinalysis was negative with the exception of 3+ bacteria. ASSESSMENT AND PLAN: 1. The patient clearly has an abnormal chest x-ray, which is most consistent with a right lower lobe pneumonia. There are several possibilities which could account for this. She could indeed be in congestive heart failure exacerbation although that the does not explain her white blood cell count. She could have had an aspiration event last night which triggered this, although we typically would think of the right upper lobe as being the more likely site for aspiration would depend upon her position at the time of the vomiting. In addition, recently 2 weeks ago she had a carotid endarterectomy, so there is the possibility of some type of in-hospital exposure. At any rate, we are going to treat her with Zosyn which should cover all of those issues. She had a dose of vancomycin in the emergency room and I will leave continuance of that particular antibiotic to the discretion of Dr. Cantu should he feel it necessary. 2. We need to be acutely aware of the patient's fluid balance since her ProBNP was elevated and she does have a history of congestive failure. 3. The patient has chronic obstructive pulmonary disease with multiple exacerbations documented in the chart. We are going to do some albuterol treatments and oxygen support in the form of BiPAP or other appliances as appropriate. I am going to see if we can avoid the steroids for now. Again, we will leave that to the discretion of the primary care physician. 4. The patient's diabetes appears to be poorly controlled. I am going to get fingerstick blood sugars and sliding scale insulin. 5. Throughout the chart, the patient has listed having high blood pressure, but she told me that she has "low blood pressure." We will need to monitor this as a sign of sepsis, and I am not sure the effect of having a large dose of diuretics just prior to getting admitted might have had on her blood pressure as a whole. 6. We are aware of her chronic pain and will catalog home medications and reinstitute those as appropriate. 7. The patient will need deep vein thrombosis prophylaxis. cc: MD Armen Rosas MD
[2019-12-10] MEDS: HUMALOG SUBQ SCH (16:00)
[2019-12-10] MEDS ORDERED: BUSPAR PO SCH (21:00)
[2019-12-10] MEDS: NEURONTIN PO SCH (21:04)
[2019-12-10] MEDS: PRILOSEC PO SCH (21:05)
[2019-12-10] MEDS: NORCO-10 PO PRN (21:05)
[2019-12-10] MEDS: DESYREL PO SCH (23:15)
[2019-12-10] MEDS: MEVACOR PO SCH (23:16)
[2019-12-10] MEDS: MIRAPEX PO SCH (23:16)
[2019-12-10] MEDS: BUSPAR PO SCH (23:17)
[2019-12-11] MEDS: HUMALOG SUBQ SCH ×5 (02:34→21:03)
[2019-12-11] MEDS: DUONEB (A & A) INH SCH ×6 (03:26→22:56)
[2019-12-11 04:49] LABS: BASO# 0.03 X1000 (0.0-0.2); BASO% 0.4 % (0.0-0.8); EOS% 1.4 % (0.0-10.0); HEMATOCRIT 34.3 % (37.0-47.0); HEMOGLOBIN 10.2 g/dL (12.0-16.0); IMM GRAN# 0.02 X1000 (0.0-0.04); IMM GRAN% 0.3 % (0.0-0.5); LYMPH# 1.59 X1000 (1.2-3.4); LYMPH% 22.3 % (20.5-51.1); MCH 28.1 PG (27-31); MCHC 29.7 g/dL (33-37); MCV 94.5 FL (81-99); MONO# 0.83 X1000 (0.11-0.59); MONO% 11.7 % (1.7-9.3); MPV 9.7 FL (7.4-10.4); NEUT# 4.55 X1000 (1.4-6.5); NEUT% 63.9 % (42.2-75.2); PLT 292 X1000 (130-400); RBC 3.63 XMIL (4.2-5.4); RDW 16.2 % (11.5-14.5); WBC 7.12 X1000 (4.8-10.8)
--- NOTE | 2019-12-11 05:54 | Diag Imaging Result Doc PS360 ---
EXAM: CHEST-PORTABLE HISTORY: RLL pneumonia TECHNIQUE: Single view COMPARISON: 12/10/2019 FINDINGS: The lungs are well expanded. There are increased interstitial markings in both lungs. These are less pronounced than on the prior study. No cardiomegaly. There is a small left pleural effusion. IMPRESSION: Interval improvement in the bilateral infiltrates. Electronically signed by Otto Newby 12/11/2019 5:51 AM
[2019-12-11 06:08] LABS: AGAP 12; ALB/GLOB RATIO 1.4; ALBUMIN 3.3 g/dL (3.5-5.0); ALKALINE PHOSPHATASE 87 U/L (32-104); BUN 18 mg/dL (8-22); CALCIUM 8.8 mg/dL (8.8-10.2); CHLORIDE 104 mmol/L (98-107); COSMO 283; CREATININE 0.8 mg/dL (0.5-0.9); ESTIMATED GFR > 60; GLUCOSE 134 mg/dL (70-104); GOT 17 U/L (10-30); GPT 16 U/L (10-36); MAGNESIUM 2.3 mg/dL (1.5-2.7); POTASSIUM 3.5 mmol/L (3.5-5.1); SODIUM 140 mmol/L (136-145); TCO2 24 mmol/L (25-35); TOTAL BILIRUBIN 0.28 mg/dL (0.20-1.00); TOTAL PROTEIN 5.6 g/dL (6.3-8.3)
[2019-12-11] MEDS: PRILOSEC PO SCH ×2 (07:37→20:59)
[2019-12-11] MEDS ORDERED: LASIX PO SCH (09:00)
[2019-12-11] MEDS: CLINDAMYCIN 900 MG/D5W 900 MG/50 ML IVPB IV SCH ×2 (09:06→17:38)
[2019-12-11] MEDS: ROCEPHIN 1 GM in NS 50 ML IV SCH (09:06)
[2019-12-11] MEDS: LASIX IV SCH ×2 (09:08→21:00)
[2019-12-11] MEDS: MAG-OX PO SCH (09:09)
[2019-12-11] MEDS: BUSPAR PO SCH ×2 (09:09→20:59)
[2019-12-11] MEDS: KLOR-CON PO SCH (09:09)
[2019-12-11] MEDS: ASPIRIN PO SCH (09:09)
[2019-12-11] MEDS: XARELTO PO SCH (09:09)
[2019-12-11] MEDS: GLUCOPHAGE PO SCH ×2 (09:09→17:37)
[2019-12-11] MEDS: ZYLOPRIM PO SCH (09:10)
[2019-12-11] MEDS: TOPROL XL PO SCH (09:10)
[2019-12-11] MEDS: MIRALAX PO SCH (09:10)
--- NOTE | 2019-12-11 17:11 | PROGRESS NOTE ---
DATE: 12/11/2019 SUBJECTIVE: Ms. Mendes was admitted to [facility] with an apparent aspiration pneumonia. She had a right lower lobe infiltrate. She reported that she has been coughing and choking while eating. She denies any refractory reflux, sour brash or epigastric discomfort. She was also admitted to [facility] with acute on chronic congestive heart failure secondary to diastolic dysfunction. Chest x-ray showed increased interstitial edema. Her proBNP was mildly elevated at 1073. She was diuresed aggressively yesterday and was placed on IV antibiotics. Chest x-ray shows improvement in the interstitial edema. OBJECTIVE: General: She is breathing more comfortably. O2 saturations are ranging from 94 to 96% on 3 L. Vital Signs: She is afebrile, pulse 103, respiratory rate 20, blood pressure 151/67. Cardiovascular: Regular rate and rhythm. Lungs: Crackles in the bases bilaterally. Abdomen: Soft, nontender with active bowel sounds. ASSESSMENT AND PLAN: 1. Aspiration pneumonia. I will switch her to Rocephin and clindamycin and continue supplemental O2 with DuoNeb nebulizer treatments. We will consult speech therapy for consideration of a modified barium swallow. 2. Acute on chronic congestive heart failure secondary to diastolic dysfunction. We will continue a salt and fluid restricted diet and aggressively diurese her with Lasix. cc: Armen Cantu MD
[2019-12-11] MEDS: MEVACOR PO SCH (20:58)
[2019-12-11] MEDS: DESYREL PO SCH (20:58)
[2019-12-11] MEDS: NEURONTIN PO SCH (20:58)
[2019-12-11] MEDS: NORCO-10 PO PRN (20:59)
[2019-12-11] MEDS: MIRAPEX PO SCH (20:59)
[2019-12-12] MEDS: CLINDAMYCIN 900 MG/D5W 900 MG/50 ML IVPB IV SCH ×3 (01:53→18:44)
[2019-12-12] MEDS: DUONEB (A & A) INH SCH ×6 (03:04→23:55)
[2019-12-12] MEDS: PRILOSEC PO SCH ×2 (06:50→21:05)
[2019-12-12] MEDS: XARELTO PO SCH (06:51)
[2019-12-12] MEDS: HUMALOG SUBQ SCH ×4 (06:52→21:03)
--- NOTE | 2019-12-12 09:26 | Diag Imaging Result Doc PS360 ---
EXAM: CHEST-2 VIEWS HISTORY: chf TECHNIQUE: Two views COMPARISON: 12/11/2019 FINDINGS: The lungs are hyperexpanded with an increased AP diameter to the chest. Tiny pleural effusions. No cardiomegaly. Mild increased interstitial markings. These are actually less pronounced than on the prior study. IMPRESSION: Mild interval improvement. Electronically signed by Otto Newby 12/12/2019 9:23 AM
[2019-12-12] MEDS: KLOR-CON PO SCH (09:42)
[2019-12-12] MEDS: ROCEPHIN 1 GM in NS 50 ML IV SCH (09:42)
[2019-12-12] MEDS: MIRALAX PO SCH (09:42)
[2019-12-12] MEDS: LASIX IV SCH ×2 (09:42→21:04)
[2019-12-12] MEDS: ZYLOPRIM PO SCH (09:42)
[2019-12-12] MEDS: MAG-OX PO SCH (09:43)
[2019-12-12] MEDS: GLUCOPHAGE PO SCH ×2 (09:43→18:44)
[2019-12-12] MEDS: ASPIRIN PO SCH (09:43)
[2019-12-12] MEDS: TOPROL XL PO SCH (09:43)
[2019-12-12] MEDS: BUSPAR PO SCH ×2 (09:43→21:02)
--- NOTE | 2019-12-12 12:24 | Diag Imaging Result Doc PS360 ---
BA SWALLOW W/VIDEO SPEECH THER - 12/12/2019 INDICATION: DYSPHAGIA TECHNIQUE: Total fluoroscopy time was 28 seconds. 104 images were obtained. COMPARISON: None FINDINGS: There is an anterior cervical spine fusion plate at C4-C5. There is a normal swallowing mechanism. No aspiration or penetration. Liquids and pureed solid consistencies were handled well. The thoracic esophagus demonstrates rather severe, diffuse esophageal spasm. This results in severe tertiary wave formation and significant retention of material in the esophagus. IMPRESSION: Diffuse esophageal spasm causing moderate delay in clearance of the esophagus. Electronically signed by Gerber Kelly 12/12/2019 12:22 PM
[2019-12-12] MEDS: NORCO-10 PO PRN ×2 (13:47→21:05)
--- NOTE | 2019-12-12 14:01 | PROGRESS NOTE ---
DATE: 12/12/2019 SUBJECTIVE: Ms. Mendes was admitted to [facility] with an aspiration pneumonia. Clinically, she continues to improve. The infiltrates in the right base continue to resolve. She has tiny pleural effusions bilaterally. She has had intermittent episodes of dysphagia and coughing with meals. We asked speech therapy to evaluate her. They did a modified barium swallow, which demonstrated diffuse esophageal spasm. She has a history of acute on chronic congestive heart failure secondary to diastolic dysfunction. Clinically, she continues to improve. OBJECTIVE: Vital Signs: Her O2 saturations are ranging from 94% to 96% on 2 liters of O2. Temperature 98.4 degrees, pulse 89, respiration 22, blood pressure 100/43. Input and Output: She has had good urine output. Her input and output are negative by nearly 3.5 liters over the past 2 days. X-Ray: Chest x-ray shows significant improvement in her interstitial edema. Cardiovascular: Regular rate and rhythm. Lungs: Faint crackles in the right base. Abdomen: Soft, nontender with active bowel sounds. Extremities: Without edema. ASSESSMENT AND PLAN: 1. Aspiration pneumonia. We will continue supplemental O2, nebulizer treatments, and intravenous Rocephin and clindamycin. 2. Urinary tract infection. Urine culture grew out Klebsiella pneumoniae. We will continue Rocephin. 3. Acute on chronic congestive heart failure secondary to diastolic dysfunction. We will continue a salt and fluid restricted diet and diuresis with Lasix. 4. Diffuse esophageal spasm. We certainly can try low-dose Imdur to reduce the degree of spasm in the esophagus. cc: Armen Cantu MD
[2019-12-12] MEDS: DESYREL PO SCH (21:02)
[2019-12-12] MEDS: MEVACOR PO SCH (21:04)
[2019-12-12] MEDS: MIRAPEX PO SCH (21:04)
[2019-12-12] MEDS: NEURONTIN PO SCH (21:04)
[2019-12-13] MEDS: CLINDAMYCIN 900 MG/D5W 900 MG/50 ML IVPB IV SCH ×3 (01:40→17:34)
[2019-12-13] MEDS: DUONEB (A & A) INH SCH ×6 (03:41→22:46)
[2019-12-13] MEDS: XARELTO PO SCH (06:14)
[2019-12-13] MEDS: PRILOSEC PO SCH ×2 (06:14→21:54)
[2019-12-13] MEDS: HUMALOG SUBQ SCH ×4 (06:22→21:59)
[2019-12-13] MEDS: ROCEPHIN 1 GM in NS 50 ML IV SCH (08:44)
[2019-12-13] MEDS: KLOR-CON PO SCH (08:46)
[2019-12-13] MEDS: LASIX IV SCH ×3 (08:46→20:24)
[2019-12-13] MEDS: GLUCOPHAGE PO SCH ×2 (08:46→17:34)
[2019-12-13] MEDS: ZYLOPRIM PO SCH (08:46)
[2019-12-13] MEDS: BUSPAR PO SCH ×2 (08:46→21:59)
[2019-12-13] MEDS: MAG-OX PO SCH (08:46)
[2019-12-13] MEDS: ASPIRIN PO SCH (08:46)
[2019-12-13] MEDS: MIRALAX PO SCH (08:46)
[2019-12-13] MEDS: TOPROL XL PO SCH (08:46)
[2019-12-13] MEDS: NORCO-10 PO PRN ×2 (13:36→21:57)
--- NOTE | 2019-12-13 15:45 | GASTROENTEROLOGY CONSULTATION ---
DATE: 12/13/2019 REASON FOR CONSULTATION: Abnormal barium swallow. HISTORY OF PRESENT ILLNESS: This is a 79-year-old female, who is known to our practice was last in our office in July 2019. At that time, she was having some problems with constipation and was being treated. Records from her admission were reviewed and apparently she had a right carotid endarterectomy in [place] 2 weeks ago. She came into the emergency room for shortness of breath. She does have a history of COPD and congestive heart failure. She was diagnosed with pneumonia. Patient had complained of some dysphagia and coughing especially after eating. A modified barium swallow was done on 12/12/2019 that showed normal swallowing mechanism with no aspiration or penetration, liquids and pureed solid consistencies were handled well. Thoracic esophagus demonstrated severe diffuse esophageal spasms resulting in tertiary wave formation and significant retention of material in esophagus. Impression was diffuse esophageal spasms causing moderate delay in clearance of the esophagus. Patient does report lying down after eating. Her last EGD by our records was in 2016, that showed erosive gastritis. She had a colonoscopy in 2013 that was normal. Currently patient states she is tolerating eating in the hospital if she sits upright. PAST MEDICAL HISTORY: Hypertension, ischemic heart disease. History of cardiovascular stents, hyperlipidemia and diabetes type 2. Chronic diastolic congestive heart failure, chronic back pain. Peripheral artery disease with recent right carotid endarterectomy. History of cervical cancer. PAST SURGICAL HISTORY: Back surgery x4, coronary artery stents x4, hysterectomy, recent right carotid endarterectomy 2 weeks ago. Last colonoscopy 2013 was normal. 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 ALLERGIES: Baclofen causing a headache. Methocarbamol causes nausea and vomiting. HOME MEDICATIONS: 1. Tylenol 650 mg every 6 hours as needed. Zyloprim 300 mg daily. 2. Aspirin 81 mg daily. Biotin 1000 mcg daily. Symbicort 2 puffs inhaler twice a day. Buspirone 15 mg twice a day, Ocuvite daily, calcium carbonate 600 mg daily. 3. Vitamin D 1000 units Mondays and Fridays. Vitamin B12 2500 mcg daily, Lasix 80 mg daily. Gabapentin 1200 mg every night, hydrocodone/acetaminophen 10/325, one every 6 hours as needed. Lovastatin 40 mg daily. Magnesium oxide 400 mg daily. 4. Metformin 500 mg twice a day. Toprol-XL 25 mg daily. 5. Multivitamin daily. 6. Prilosec 20 mg twice a day. MiraLAX daily. 7. Potassium 10 mEq daily. 8. Mirapex 0.5 mg daily. Brilinta 90 mg twice a day. Trazodone 150 mg every night. Vitamin B daily. REVIEW OF SYSTEMS: Per history of present illness. PHYSICAL EXAMINATION: Vital Signs: Temperature 97.7 degrees, pulse 87, respirations 22, blood pressure 107/88. General: Patient is awake and alert. She is sitting up in the bed in no acute distress. She does have O2 by Ventimask. She states her respiratory status is improving. She reports less coughing as long as she is sitting upright when eating and after eating. HEENT: Normocephalic, atraumatic. Pupils equal, round, reactive to light. Sclerae nonicteric. Lung Sounds: With some crackles noted. Cardiovascular: Regular rate and rhythm. Abdomen: Soft, nontender. Positive bowel sounds. Extremities: With no lower extremity edema noted. DIAGNOSTIC RESULTS: Laboratory: Hematology: WBC 7.12, hemoglobin 10.2, hematocrit 34.3, MCV 94.5, platelets 292,000. Coagulation: ProTime 12.2, INR 0.90, PTT 25.8. Chemistry: Sodium 140, potassium 3.5, chloride 104, CO2 24, BUN 18, creatinine 0.8, glucose 134, calcium 8.8, magnesium 2.3, total bilirubin 0.28, AST 17, ALT 16 alkaline phosphatase 87, modified barium swallow showing diffuse esophageal spasm causing moderate delay in clearance of the esophagus. ASSESSMENT AND PLAN: 1. Aspiration pneumonia. Patient is on O2 by Ventimask. Continue current antibiotics and respiratory management. 2. Urinary tract infection on antibiotics. 3. Dysphagia, cough after eating, modified barium swallow showing esophageal spasms. Would recommend to continue proton pump inhibitors, follow strict anti-reflux measures, follow aspiration precautions. Recommend sitting upright in a chair or on the side of the bed when eating. Do not lie down after eating. One option, that is trying a short-acting calcium channel lauren like Cardizem or a nitrate. Side effects of nitrate including headache may warrant trying Cardizem 1st and would recommend 3 times a day before meals. For now, we will continue proton pump inhibitors and see how she does. She may need esophagogastroduodenoscopy once her respiratory status has improved and because she is on Xarelto that would need to be held. Patient has had recent right carotid endarterectomy. Would recommend following for now and evaluating in the office before proceeding with esophagogastroduodenoscopy. 4. Further plans will be made according to patient's progress. I have discussed this case with Dr. San. Dictated by ANTONY Green for Corona San MD cc: ANTONY Mckeon MD M. Neel Roberts, MD
--- NOTE | 2019-12-13 17:04 | PROGRESS NOTE ---
DATE: 12/13/2019 Ms Mendes was admitted to [facility] with acute on chronic congestive heart failure secondary to diastolic dysfunction. Clinically, she is breathing comfortably. She is maintaining O2 saturations of 98 to 99 percent on 2 L of O2. Chest x-ray shows bilateral pleural effusions. She was also admitted with an aspiration pneumonia. She has been on Levaquin and clindamycin. Chest x-ray shows resolution of the pneumonia. Modified barium swallow demonstrated diffuse esophageal spasm. OBJECTIVE: She is afebrile, pulse 87, respirations 22, BP 107/80. CV: Regular rate and rhythm. LUNGS: Clear. ABDOMEN: Soft, nontender with active bowel sounds. EXTREMITIES: Without edema. ASSESSMENT AND PLAN: 1. Aspiration pneumonia. We will continue DuoNeb nebulizer treatments and intravenous Levaquin and clindamycin. 2. Acute on chronic congestive heart failure secondary to diastolic dysfunction. We will continue a salt and fluid restricted diet and diuresis with Lasix. 3. Diffuse esophageal spasm. We will consult Dr. Echevarria to see the patient in consultation. As she is improving clinically, I will check a room air O2 saturation and discontinue the O2 if her O2 saturation is greater than 90%. cc: Armen Cantu MD
[2019-12-13] MEDS: DESYREL PO SCH (21:54)
[2019-12-13] MEDS: NEURONTIN PO SCH (21:54)
[2019-12-13] MEDS: MEVACOR PO SCH (21:54)
[2019-12-13] MEDS: MIRAPEX PO SCH (21:55)
[2019-12-14] MEDS: CLINDAMYCIN 900 MG/D5W 900 MG/50 ML IVPB IV SCH ×3 (00:48→16:57)
[2019-12-14] MEDS: DUONEB (A & A) INH SCH ×6 (03:40→23:40)
[2019-12-14] MEDS: PRILOSEC PO SCH ×2 (06:05→21:26)
[2019-12-14] MEDS: XARELTO PO SCH (06:06)
[2019-12-14] MEDS: HUMALOG SUBQ SCH ×4 (06:06→21:34)
[2019-12-14] MEDS: MIRALAX PO SCH (08:09)
[2019-12-14] MEDS: TOPROL XL PO SCH (08:09)
[2019-12-14] MEDS: LASIX IV SCH ×2 (08:09→21:27)
[2019-12-14] MEDS: MAG-OX PO SCH (08:09)
[2019-12-14] MEDS: BUSPAR PO SCH ×2 (08:10→21:27)
[2019-12-14] MEDS: ASPIRIN PO SCH (08:10)
[2019-12-14] MEDS: KLOR-CON PO SCH (08:10)
[2019-12-14] MEDS: ROCEPHIN 1 GM in NS 50 ML IV SCH (08:10)
[2019-12-14] MEDS: ZYLOPRIM PO SCH (08:10)
[2019-12-14] MEDS: GLUCOPHAGE PO SCH ×2 (08:10→16:57)
[2019-12-14] MEDS ORDERED: CARDIZEM PO SCH (11:00)
--- NOTE | 2019-12-14 13:10 | Diag Imaging Result Doc PS360 ---
CHEST-2 VIEWS - 12/14/2019 INDICATION: copd COMPARISON: 12/12/2019 FINDINGS: There has been improvement in the faint infiltrate in the right midlung. There is some multifocal linear atelectasis in the left midlung and base. Heart size is normal. No pneumothorax or pleural effusion. IMPRESSION: Improvement from prior. Electronically signed by Gerber Kelly 12/14/2019 1:08 PM
--- NOTE | 2019-12-14 13:40 | GASTROENTEROLOGY PROGRESS NOTE ---
DATE: 12/14/2019 SUBJECTIVE: Patient is awake and alert at the time of my visit. She was sitting up on the bedside commode. She states she has had some diuretics and having frequent urination. Currently she has tolerated her diet. She did have a barium swallow that showed diffuse esophageal spasms causing moderate delay in clearance of the esophagus. OBJECTIVE: Vital Signs: Temperature 97.6 degrees, pulse 76, respirations 15, blood pressure 119/104. General: Patient is awake, alert, in no acute distress. LABORATORY: Hematology: WBC 7.12, hemoglobin 10.2, hematocrit 34.3, MCV 94.5. Chemistry: Sodium 140, potassium 3.5, chloride 104, CO2 24. BUN 18, creatinine 0.8, glucose 134, calcium 8.8, magnesium 2.3. Total bilirubin 0.28, AST 17, ALT 16, alkaline phosphatase 87. ASSESSMENT AND PLAN: 1. Aspiration pneumonia. Continued on antibiotics and oxygen. Continue respiratory management. 2. Urinary tract infection on antibiotics. 3. Dysphagia, coughing after eating. Modified barium swallow showing esophageal spasms. Continue strict anti-reflux measures and aspiration precautions. Continue proton pump inhibitor. We will try short acting calcium channel lauren, Cardizem 30 mg three times a day before meals to see if this will help with her esophageal spasm. She is at high risk for endoscopy procedure at this time due to her recent pneumonia, along with recent carotid endarterectomy and on Xarelto. Will start with medications and follow in the office after discharge. Further plans to be made according to her progress. I have advised her to monitor her blood pressure and monitor for any signs of dizziness with Cardizem dose. Further plans to be made as needed. I have discussed this case with Dr. San. Dictated by ANTONY Green for Corona San MD cc: ANTONY Mckeon MD M. Neel Roberts, MD
[2019-12-14] MEDS: NORCO-10 PO PRN ×2 (15:15→21:27)
[2019-12-14] MEDS: CARDIZEM PO SCH ×2 (16:56→16:57)
[2019-12-14] MEDS: DESYREL PO SCH (21:26)
[2019-12-14] MEDS: ELIQUIS PO SCH (21:26)
[2019-12-14] MEDS: NEURONTIN PO SCH (21:26)
[2019-12-14] MEDS: MIRAPEX PO SCH (21:27)
[2019-12-14] MEDS: MEVACOR PO SCH (21:27)
[2019-12-15] MEDS: CLINDAMYCIN 900 MG/D5W 900 MG/50 ML IVPB IV SCH ×2 (00:25→08:11)
[2019-12-15] MEDS: DUONEB (A & A) INH SCH ×4 (03:45→15:59)
[2019-12-15] MEDS ORDERED: LASIX IV SCH (05:00)
[2019-12-15] MEDS: PRILOSEC PO SCH ×2 (05:45→06:07)
[2019-12-15] MEDS: CARDIZEM PO SCH ×3 (05:45→12:31)
[2019-12-15] MEDS: HUMALOG SUBQ SCH ×3 (06:07→16:21)
[2019-12-15] MEDS: MIRALAX PO SCH (08:11)
[2019-12-15] MEDS: BUSPAR PO SCH (08:12)
[2019-12-15] MEDS: GLUCOPHAGE PO SCH ×2 (08:12→17:24)
[2019-12-15] MEDS: ROCEPHIN 1 GM in NS 50 ML IV SCH (08:12)
[2019-12-15] MEDS: ZYLOPRIM PO SCH (08:12)
[2019-12-15] MEDS: ELIQUIS PO SCH (08:12)
[2019-12-15] MEDS: ASPIRIN PO SCH (08:12)
[2019-12-15] MEDS: KLOR-CON PO SCH (08:12)
[2019-12-15] MEDS: MAG-OX PO SCH (08:12)
[2019-12-15] MEDS ORDERED: NS 250 ML IV ONE ×2 (08:46→12:44)
--- NOTE | 2019-12-15 09:59 | PROGRESS NOTE ---
DATE: 12/15/2019 SUBJECTIVE: Mrs. Mendes has a history of diffuse esophageal spasm. We started low-dose diltiazem 30 mg t.i.d. prior to meals. Unfortunately, she has not been able to tolerate the diltiazem secondary to hypotension. She denies any chest pain, palpitations, or anginal equivalents. She is breathing comfortably O2 saturations are ranging from 93% to 94 percent on room air. Her O2 saturation was 91% on room air with exercise and increased to 97% on 2 L of O2 with exercise. Her chest x-ray demonstrates resolution of the pleural effusions. The right middle lobe pneumonia has improved greatly. OBJECTIVE: Temperature 98.3 degrees, pulse 93, respirations 25, BP 86/59. CV regular rate and rhythm. Lungs clear. Abdomen soft nontender with active bowel sounds. ASSESSMENT AND PLAN: 1. Hypotension. I am going to hold her Lasix and Cardizem. I will give her 250 mils bolus of normal saline and follow her blood pressure. 2. Aspiration pneumonia with acute chronic obstructive pulmonary disease exacerbation. Clinically, she is breathing comfortably and is maintaining good O2 saturations on room air. We will continue Symbicort 2 puffs b.i.d., DuoNeb nebulizer treatments and I will transition her to oral antibiotics. 3. Acute on chronic congestive heart failure secondary to diastolic dysfunction. Because of hypotension, I will hold her Lasix. I will give her small bolus of fluid. cc: Armen Cantu MD
[2019-12-15 15:54] VITALS: BP 125/84
--- NOTE | 2019-12-15 18:17 | GASTROENTEROLOGY PROGRESS NOTE ---
DATE: 12/15/2019 SUBJECTIVE: The patient was resting when I made rounds. She aroused easily. Her was at the bedside. She states she had a drop in her blood pressure with the Cardizem. We tried starting low-dose low acting Cardizem 3 times a day before meals for esophageal spasms but unfortunately her blood pressure dropped. The Cardizem has been held. Her Lasix was also held by Dr. Cantu and she was given a fluid bolus. Currently her blood pressure is 86/59. She denies dizziness or lightheadedness. No reported chest pain or shortness of breath. OBJECTIVE: Vital Signs: Temperature 97.6 degrees, pulse 86, respirations 22, blood pressure 86/59. General: Patient is awake, alert, no acute distress. She ate about 50% of her breakfast today. She has denied dysphagia or coughing. LABORATORY: Hematology, WBC from 12/11/2019 7.12, hemoglobin 10.2, hematocrit 34.3. Chemistry. Sodium 140, potassium 3.5, chloride 104, CO2 24, BUN 18, creatinine 0.8, glucose 134. ASSESSMENT AND PLAN: 1. Aspiration pneumonia on antibiotics. Respiratory status is stable on room air now. 2. Urinary tract infection on antibiotics. 3. Dysphagia, coughing after eating with aspiration pneumonia. The patient had barium swallow that showed esophageal spasms. We tried short-acting calcium channel lauren Cardizem 30 mg 3 times a day before meals but unfortunately she had a decrease in her blood pressure so it was stopped. Would recommend to continue her PPI. She thinks that Nexium helped her better in the past. We will discuss changing over to Nexium. Recommend she follow up with us as an outpatient for further evaluation. If she is discharged home over the weekend recommend she call and make an office visit. If she continues to be in the hospital on Wednesday will followed back then and further plans to be made according to her progress. I have discussed this case with Dr. San. Dictated by ANTONY Green for Corona San MD cc: ANTONY Mckeon MD M. Neel Roberts, MD
[2019-12-15] MEDS ORDERED: AUGMENTIN PO SCH (21:00)
--- NOTE | 2020-01-18 07:56 | DISCHARGE SUMMARY ---
ADMISSION DATE: 12/10/2019 DISCHARGE DATE: 12/15/2019 DISCHARGE DIAGNOSES: 1. Acute respiratory failure with hypoxia. 2. Acute chronic obstructive pulmonary disease exacerbation complicated by aspiration pneumonitis. 3. Acute on chronic diastolic congestive heart failure. 4. Diffuse esophageal is spasm. 5. Gastroesophageal reflux disease. 6. 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 7. Ischemic heart disease. DISCHARGE INSTRUCTIONS: 1. Return to clinic in 1 week to see me Dr. Doug Cantu. 2. 1800 calorie ADA diet #3. ACTIVITY: As tolerated. MEDICATIONS: 1. Augmentin 875 mg b.i.d. for 10 days. 2. Eliquis 2.5 mg b.i.d. 3. Allopurinol 300 mg daily. 4. Biotin 1000 mcg daily. 5. Vitamin B12 2500 mcg daily. 6. Gabapentin 1200 mg at bedtime. 7. Lovastatin 40 mg at bedtime. 8. MiraLAX 1 teaspoon in 8 ounces of water daily. 9. KCl 10 mEq daily. 10. Trazodone 150 mg at bedtime p.r.n. insomnia. 11. Aspirin 81 mg daily. 12. Mirapex 0.5 mg at bedtime. 13. BuSpar 15 mg b.i.d. 14. Magnesium oxide 400 mg daily. 15. Vitamin D3 1000 units Wednesday and Wednesday. 16. Lasix 80 mg daily. 17. Metformin 500 mg b.i.d. 18. [place] 10 1 q.6 hours p.r.n. pain. 19. Omeprazole 20 mg b.i.d. 20. Symbicort 160/4.5 two puffs b.i.d. DISCHARGE PHYSICAL EXAMINATION: This is an elderly frail 79-year-old lady in no apparent distress. She is afebrile. Vital signs are stable. CV: Regular rate and rhythm. Lungs: Clear. Abdomen: Soft and nontender with active bowel sounds. HOSPITAL COURSE: The patient was admitted to [facility] with an acute chronic obstructive pulmonary disease exacerbation complicated by aspiration pneumonia. On hospital day #1, I switched her to Rocephin and clindamycin while continuing supplemental O2 with DuoNeb nebulizer treatments. She had been having coughing and choking while eating. Speech Therapy was consulted to see the patient. A modified barium swallow was obtained. It demonstrated diffuse esophageal spasm. We tried low-dose diltiazem to improve relaxation of the esophagus, but she was unable to tolerate the diltiazem due to hypotension. Other potential options including use of a long-acting nitroglycerin such as Imdur, but again, we were concerned about episodes of hypotension, and did not give it to her. We will make arrangements for her to see Dr. San as an outpatient for further evaluation. With aggressive pulmonary toileting and appropriate antibiotics, she made good clinical improvement. We were gradually able to wean her off oxygen and transitioned her to oral antibiotics. Chest x-ray demonstrated resolution of the right lower lobe infiltrate. She will complete an additional 10 day course of Augmentin 875 mg b.i.d. She does have a history of acute on chronic congestive heart failure secondary to diastolic dysfunction. We continued her on a salt and fluid restricted diet, and aggressively diuresed her initially. Once she had excellent urine output and we were gradually able to cut back down on her oral Lasix, she will continue a salt and fluid restricted diet at home. I have asked her to weigh daily. If she gains 1 to 2 pounds in 24 hours, she may take an additional Lasix. Having reached maximum hospital benefit, the patient was discharged in stable condition. cc: Armen Cantu MD
== END 2019-12-15 18:25 | disposition home health service (06) | DRG 177 ==
LOC: SUPCPDRO → ED 06:13 → EDIPHOLD 11:12 → 2N 12-11 10:13
PROVIDERS: ADMIT Internal Medicine; ATTEND Internal Medicine